=== PATIENT | male | born 1980 | race Two or more races ===

== ENCOUNTER 2023-08-12 10:59 | Inpatient (IN) | payer MEDICAID, OTHER ==
[~2023-08-12] VITALS: Ht 177.8 cm; Wt 90.7 kg
[2023-08-12] VITALS (11 sets, daily range): BP systolic 99–112; BP diastolic 60–74; PULSE 70–75; RESP 22–29; TEMP 98.2; O2SAT 92–98
[2023-08-12] MEDS ORDERED: SODIUM CHLORIDE 0.9% 1,000 ML IVB ONE (11:15)
[2023-08-12 11:38] LABS: Basophils # (auto) 0.1 10 ^3/uL (0-0.2); Basophils % (auto) 0.6 % (0.0-2.0); Eosinophils # (auto) 0.6 10 ^3/uL (0-0.8); Eosinophils % (auto) 4.2 % (0.0-7.0); Hematocrit 42.4 % (41.0-53.0); Hemoglobin 14.6 g/dL (13.5-17.5); Lymphocytes # (auto) 1.9 10 ^3/uL (0.4-5.4); Lymphocytes % (auto) 13.6 % (10.0-50.0); Mean Corpuscular Hemoglobin 28.9 pg (28.0-32.0); Mean Corpuscular Hgb Conc. 34.4 g/dL (32.0-36.0); Monocytes # (auto) 0.9 10 ^3/uL (0-1.3); Monocytes % (auto) 6.6 % (0.0-12.0); Neutrophils # (auto) 10.7 10 ^3/uL (1.6-8.6); Nucleated Red Blood Cells % 0.2 %; Red Blood Cells 5.05 10^6/uL (4.5-5.90); Red Cell Distribution Width 14.6 % (11.8-14.3); White Blood Cell 14.2 10^3/uL (4.4-10.8)
[2023-08-12 11:56] LABS: INR 1.42 (0.9-1.15); Prothrombin Time 14.6 sec (9.3-11.8)
[2023-08-12] MEDS ORDERED: ONDANSETRON HCL 4 MG/2 ML VIAL IV ONE (12:00)
[2023-08-12 12:12] LABS: COVID19 ANTIGEN SOFIA FIA NEGATIVE (NEGATIVE)
[2023-08-12 12:14] LABS: Alanine Aminotransferase 66 U/L (7-40); Albumin 4.8 g/dL (3.2-4.8); Alkaline Phosphatase 117 U/L (46-116); Anion Gap 11 (5-15); Aspartate Aminotransferase 147 U/L (13-40); BUN/Creatinine Ratio 7.2 (10.0-20.0); Blood Alcohol < 3.0 mg/dL (<10); Blood Urea Nitrogen 29 mg/dL (9-23); Carbon Dioxide 24 mmol/L (20-30); Chloride 96 mmol/L (98-107); Glucose 66 mg/dL (74-106); Potassium 5.5 mmol/L (3.5-5.1); Sodium 131 mmol/L (136-145)
[2023-08-12 12:15] LABS: Bilirubin, Total 2.5 mg/dL (0.2-1.0); Lactic Acid w/Reflex 2.5 mmol/L (0.4-2.0); Total Protein 8.6 g/dL (5.7-8.2)
[2023-08-12] MEDS ORDERED: SODIUM CHLORIDE 0.9% 1,000 ML IV ONE (12:15)
[2023-08-12] MEDS ORDERED: NOREPINEPHRINE 8 MG/250ML KIT 250 ML IV ONE (12:35)
[2023-08-12 12:43] LABS: Magnesium 1.4 mg/dL (1.6-2.6)
[2023-08-12] MEDS: NOREPINEPHRINE 8 MG/250ML KIT 250 ML IV SCH ×2 (12:44→23:44)
[2023-08-12 13:53] LABS: Rapid Influenza A Negative (Negative); Rapid Influenza B Negative (Negative)
[2023-08-12] MEDS ORDERED: SODIUM CHLORIDE 0.9% 2,750 ML IV ONE (14:00)
[2023-08-12] MEDS ORDERED: cefTRIAXone 1GM/50ML D5W 50 ML IV ONE (14:00)
[2023-08-12] MEDS ORDERED: levoFLOXacin 500MG 100 ML IV ONE (14:00)
[2023-08-12] MEDS ORDERED: NITROGLYCERIN 0.4 MG SL TAB SL PRN (15:45)
[2023-08-12] MEDS: SODIUM CHLORIDE 0.9% 1,000 ML IV SCH ×2 (15:45→23:45)
[2023-08-12] MEDS ORDERED: MORPHINE SULFATE INJ 2 MG/ml SYRG IV PRN (15:45)
[2023-08-12] MEDS ORDERED: ACETAMINOPHEN 325 MG TAB PO PRN (15:45)
[2023-08-12] MEDS ORDERED: SODIUM ZIRCONIUM CYCL 10 GM PAK PO ONE (16:30)
[2023-08-12] MEDS: PHENYLEPHRINE IV 250 ML IV SCH ×2 (17:11→23:45)
[2023-08-12] MEDS ORDERED: ASPI-628 PO (17:21)
[2023-08-12] MEDS ORDERED: LEVO200T7 PO (17:21)
[2023-08-12] MEDS ORDERED: ALLO300T2 PO (17:21)
[2023-08-12] MEDS ORDERED: SPIR25TA8 PO (17:21)
[2023-08-12] MEDS ORDERED: CARV6.2551 PO (17:21)
[2023-08-12] MEDS ORDERED: FUR20T PO (17:21)
[2023-08-12] MEDS ORDERED: HYDR-4604 PO (17:22)
[2023-08-12] MEDS: MAGNESIUM SULFATE 1GM/100ML 100 ML IV SCH ×3 (17:29→21:24)
[2023-08-12] MEDS ORDERED: VANCOMYCIN PER PHARMACY 0 MG IV SCH (17:30)
[2023-08-12] MEDS ORDERED: VANCOMYCIN 1GM/250ML 250 ML IV ONE (17:30)
[2023-08-12 18:32] LABS: Hepatitis B Surface Antigen Negative (Negative)
[2023-08-12] MEDS ORDERED: HYDROCORTISONE SOD SUCC 100 MG/2ML INJ VIAL IV ONE (18:45)
[2023-08-12 18:53] LABS: Hepatitis A Ab IgM Negative
[2023-08-12 18:54] LABS: Hepatitis B Core IgM Negative; Hepatitis C Antibody Negative (Negative)
[2023-08-12 19:13] LABS: Urine Bacteria FEW /hpf (None Seen); Urine Blood 1+ /uL (Negative); Urine Clarity HAZY (Clear); Urine Color Yellow (Yellow); Urine Hyaline Cast FEW /lpf (0 - 2); Urine Mucus FEW (None Seen); Urine Protein, UAD 2+ (Negative); Urine Specific Gravity 1.016 (1.001-1.035); Urine Urobilinogen Normal (Negative); Urine WBC <1 /hpf (0 - 3); Urine pH 5.5 (5.0-8.0)
[2023-08-12 19:18] LABS: Sodium Urine 76 mmol/L (40-220)
[2023-08-12 19:23] LABS: Protein, Urine 156.9 mg/dL (0.0-11.9)
[2023-08-12 19:25] LABS: Barbiturate Scree,Urine Neg (NEGATIVE); Benzodiazephine Screen, Urine Neg (NEGATIVE); Cocaine Screen, Urine Neg (NEGATIVE); Opiate Scree,Urine Neg (NEGATIVE); Phencyclidine Screen, Urine Neg (NEGATIVE)
[2023-08-12 19:26] LABS: Amphetamine Screen, Urine Neg (NEGATIVE); Cannabinoid Screen, Urine Neg (NEGATIVE); Creatinine, Urine 137.44 mg/dL (30.0-125.0); Urine Protein/Creatinine Ratio 1.14
[2023-08-12] MEDS: CEFEPIME 1GM/ 50ML 50 ML IV SCH (21:45)
[2023-08-12] MEDS ORDERED: DESNSL NAS (23:25)
[2023-08-12] MEDS: HYDROCORTISONE SOD SUCC 100 MG/2ML INJ VIAL IV SCH (23:45)
[2023-08-13] VITALS (104 sets, daily range): BP systolic 63–127; BP diastolic 39–83; PULSE 66–81; RESP 12–30; TEMP 97.7–98.7; O2SAT 90–98
[2023-08-13 03:29] LABS: Urine Bacteria FEW /hpf (None Seen); Urine Blood 2+ /uL (Negative); Urine Clarity Clear (Clear); Urine Color Colorless (Yellow); Urine Mucus FEW (None Seen); Urine Protein, UAD TRACE (Negative); Urine Specific Gravity 1.005 (1.001-1.035); Urine Urobilinogen Normal (Negative); Urine WBC 3 /hpf (0 - 3)
[2023-08-13 04:24] LABS: Basophils # (auto) 0 10 ^3/uL (0-0.2); Basophils % (auto) 0.2 % (0.0-2.0); Eosinophils # (auto) 0 10 ^3/uL (0-0.8); Eosinophils % (auto) 0.1 % (0.0-7.0); Hematocrit 39.2 % (41.0-53.0); Hemoglobin 13.6 g/dL (13.5-17.5); Lymphocytes # (auto) 0.7 10 ^3/uL (0.4-5.4); Lymphocytes % (auto) 5.5 % (10.0-50.0); Mean Corpuscular Hemoglobin 29.5 pg (28.0-32.0); Mean Corpuscular Hgb Conc. 34.8 g/dL (32.0-36.0); Mean Corpuscular Volume 84.8 fL (80.0-100.0); Monocytes # (auto) 0.2 10 ^3/uL (0-1.3); Monocytes % (auto) 1.6 % (0.0-12.0); Neutrophils # (auto) 12.2 10 ^3/uL (1.6-8.6); Neutrophils % (auto) 92.6 % (37.0-80.0); Red Blood Cells 4.62 10^6/uL (4.5-5.90); Red Cell Distribution Width 14.4 % (11.8-14.3); White Blood Cell 13.2 10^3/uL (4.4-10.8)
[2023-08-13 04:39] LABS: Lactic Acid w/Reflex 2.2 mmol/L (0.4-2.0)
[2023-08-13 05:08] LABS: Alanine Aminotransferase 47 U/L (7-40); Albumin 4.2 g/dL (3.2-4.8); Alkaline Phosphatase 93 U/L (46-116); Anion Gap 14 (5-15); Aspartate Aminotransferase 99 U/L (13-40); BUN/Creatinine Ratio 6.1 (10.0-20.0); Blood Urea Nitrogen 20 mg/dL (9-23); Calcium 8.9 mg/dL (8.5-10.1); Carbon Dioxide 19 mmol/L (20-30); Chloride 101 mmol/L (98-107); Glucose 163 mg/dL (74-106); Potassium 3.8 mmol/L (3.5-5.1); Sodium 134 mmol/L (136-145)
[2023-08-13 05:09] LABS: Bilirubin, Total 2.5 mg/dL (0.2-1.0)
[2023-08-13] MEDS: NOREPINEPHRINE 8 MG/250ML KIT 250 ML IV SCH ×2 (06:35→17:51)
[2023-08-13] MEDS: HYDROCORTISONE SOD SUCC 100 MG/2ML INJ VIAL IV SCH ×3 (06:36→22:09)
[2023-08-13] MEDS: LEVOTHYROXINE SODIUM 100 MCG TAB PO SCH (06:37)
[2023-08-13] MEDS ORDERED: ONDANSETRON HCL 4 MG/2 ML VIAL IV PRN (08:00)
[2023-08-13] MEDS: PHENYLEPHRINE IV 250 ML IV SCH ×2 (09:10→17:30)
[2023-08-13] MEDS: ASPirin-EC 81 mg tab PO SCH (10:14)
[2023-08-13] MEDS: SODIUM CHLORIDE 0.9% 1,000 ML IV SCH (10:14)
[2023-08-13] MEDS: ALLOPURINOL 300 MG TAB PO SCH (10:18)
[2023-08-13] MEDS ORDERED: VANCOMYCIN 1GM/250ML 250 ML IV ONE (11:30)
[2023-08-13 14:17] LABS: Lactic Acid w/Reflex 3.2 mmol/L (0.4-2.0)
[2023-08-13] MEDS: MAGNESIUM SULFATE 1GM/100ML 100 ML IV SCH ×2 (14:18→16:25)
[2023-08-13 14:43] LABS: Creatinine, Urine 29.45 mg/dL (30.0-125.0)
[2023-08-13] MEDS: SODIUM BICARBONATE 50ML VIAL 75 ML in SOD CHL 0.45% 1,000 ML IV SCH (14:51)
[2023-08-13] MEDS: CEFEPIME 1GM/ 50ML 50 ML IV SCH (17:49)
[2023-08-13 20:06] LABS: Lactic Acid w/Reflex 2.7 mmol/L (0.4-2.0)
[2023-08-13] MEDS ORDERED: DESMOPRESSIN ACET 0.01% 5ML NASAL SPRY SCH (22:00)
[2023-08-14] VITALS (106 sets, daily range): BP systolic 82–207; BP diastolic 53–145; PULSE 70–98; RESP 13–25; TEMP 98.2–98.5; O2SAT 86–99
[2023-08-14] MEDS: SODIUM BICARBONATE 50ML VIAL 75 ML in SOD CHL 0.45% 1,000 ML IV SCH ×4 (00:27→19:39)
[2023-08-14 01:12] LABS: Lactic Acid w/Reflex 2.1 mmol/L (0.4-2.0)
[2023-08-14] MEDS: PHENYLEPHRINE IV 250 ML IV SCH ×3 (01:50→17:51)
[2023-08-14 04:18] LABS: Lactic Acid w/Reflex 2.7 mmol/L (0.4-2.0)
[2023-08-14 04:21] LABS: Alanine Aminotransferase 32 U/L (7-40); Albumin 4.1 g/dL (3.2-4.8); Alkaline Phosphatase 75 U/L (46-116); Anion Gap 9 (5-15); Aspartate Aminotransferase 50 U/L (13-40); Blood Urea Nitrogen 15 mg/dL (9-23); Carbon Dioxide 23 mmol/L (20-30); Chloride 106 mmol/L (98-107); Glucose 131 mg/dL (74-106); Potassium 4.1 mmol/L (3.5-5.1); Sodium 138 mmol/L (136-145)
[2023-08-14 04:22] LABS: Basophils # (auto) 0 10 ^3/uL (0-0.2); Bilirubin, Total 1.4 mg/dL (0.2-1.0); Eosinophils # (auto) 0 10 ^3/uL (0-0.8); Hematocrit 35.7 % (41.0-53.0); Hemoglobin 12.4 g/dL (13.5-17.5); Lymphocytes # (auto) 0.8 10 ^3/uL (0.4-5.4); Mean Corpuscular Hemoglobin 28.9 pg (28.0-32.0); Mean Corpuscular Hgb Conc. 34.7 g/dL (32.0-36.0); Mean Corpuscular Volume 83.3 fL (80.0-100.0); Monocytes # (auto) 0.5 10 ^3/uL (0-1.3); Monocytes % (auto) 3.2 % (0.0-12.0); Neutrophils # (auto) 13.9 10 ^3/uL (1.6-8.6); Neutrophils % (auto) 91.8 % (37.0-80.0); Nucleated Red Blood Cells % 0.1 %; Red Blood Cells 4.28 10^6/uL (4.5-5.90); Red Cell Distribution Width 14.8 % (11.8-14.3); Total Protein 7.6 g/dL (5.7-8.2); White Blood Cell 15.2 10^3/uL (4.4-10.8)
[2023-08-14] MEDS: HYDROCORTISONE SOD SUCC 100 MG/2ML INJ VIAL IV SCH ×2 (06:10→14:03)
[2023-08-14] MEDS: LEVOTHYROXINE SODIUM 100 MCG TAB PO SCH (07:26)
[2023-08-14] MEDS: CEFEPIME 1GM/ 50ML 50 ML IV SCH ×2 (09:58→21:31)
[2023-08-14] MEDS: ASPirin-EC 81 mg tab PO SCH (09:58)
[2023-08-14] MEDS: ALLOPURINOL 300 MG TAB PO SCH (09:58)
[2023-08-14] MEDS ORDERED: VANCOMYCIN 1GM/250ML 250 ML IV ONE (11:00)
[2023-08-14 12:30] LABS: Lactic Acid w/Reflex 2.1 mmol/L (0.4-2.0)
[2023-08-14] MEDS: NOREPINEPHRINE 8 MG/250ML KIT 250 ML IV SCH (18:04)
[2023-08-14] MEDS ORDERED: HYDROCORTISONE SOD SUCC 100 MG/2ML INJ VIAL IV SCH (22:00)
[2023-08-15] VITALS (52 sets, daily range): BP systolic 76–132; BP diastolic 49–89; PULSE 70–75; RESP 15–24; TEMP 98.4–98.5; O2SAT 88–95
[2023-08-15] MEDS: LEVOTHYROXINE SODIUM 100 MCG TAB PO SCH (07:00)
[2023-08-15] MEDS: ALLOPURINOL 300 MG TAB PO SCH (10:00)
[2023-08-15] MEDS: CEFEPIME 1GM/ 50ML 50 ML IV SCH (10:00)
[2023-08-15] MEDS: ASPirin-EC 81 mg tab PO SCH (10:00)
[2023-08-15 12:42] LABS: Anion Gap 10 (5-15); BUN/Creatinine Ratio 12.9 (10.0-20.0); Blood Urea Nitrogen 17 mg/dL (9-23); Calcium 8.3 mg/dL (8.7-10.4); Carbon Dioxide 25 mmol/L (20-30); Chloride 101 mmol/L (98-107); Glucose 114 mg/dL (74-106); Potassium 3.4 mmol/L (3.5-5.1); Sodium 136 mmol/L (136-145)
[2023-08-15] MEDS ORDERED: SPIRONOLACTONE 25 MG TAB PO ONE (15:00)
[2023-08-15] MEDS ORDERED: FUROSEMIDE 20 MG TAB PO ONE (15:00)
[2023-08-15] MEDS ORDERED: VANCOMYCIN 1GM/250ML 250 ML IV ONE (15:00)
[2023-08-15] MEDS ORDERED: POTASSIUM CHL 20 Meq TABLET PO ONE (15:00)
[2023-08-15 16:53] LABS: Basophils # (auto) 0 10 ^3/uL (0-0.2); Basophils % (auto) 0.1 % (0.0-2.0); Eosinophils # (auto) 0 10 ^3/uL (0-0.8); Hematocrit 32.8 % (41.0-53.0); Hemoglobin 11.3 g/dL (13.5-17.5); Lymphocytes # (auto) 1.1 10 ^3/uL (0.4-5.4); Lymphocytes % (auto) 9.8 % (10.0-50.0); Mean Corpuscular Hgb Conc. 34.4 g/dL (32.0-36.0); Mean Corpuscular Volume 84.5 fL (80.0-100.0); Monocytes # (auto) 0.4 10 ^3/uL (0-1.3); Monocytes % (auto) 3.9 % (0.0-12.0); Neutrophils # (auto) 9.4 10 ^3/uL (1.6-8.6); Neutrophils % (auto) 86.2 % (37.0-80.0); Red Blood Cells 3.88 10^6/uL (4.5-5.90); Red Cell Distribution Width 14.6 % (11.8-14.3); White Blood Cell 10.9 10^3/uL (4.4-10.8)
[2023-08-15] MEDS ORDERED: CEFEPIME 2GM/50ML NS 50 ML IV SCH (17:00)
[2023-08-15] MEDS: NOREPINEPHRINE 8 MG/250ML KIT 250 ML IV SCH (17:45)
[2023-08-15] MEDS: CEFEPIME 2GM/50ML NS 50 ML IV SCH ×2 (18:37→21:48)
[2023-08-15] MEDS: HYDROCORTISONE 10 MG TAB PO SCH (21:46)
[2023-08-15] MEDS: DESMOPRESSIN ACET 0.01% 5ML NASAL SPRY SCH (21:53)
[2023-08-15] MEDS ORDERED: CEFEPIME 1GM/ 50ML 50 ML IV SCH (22:00)
[2023-08-16] VITALS (104 sets, daily range): BP systolic 65–146; BP diastolic 44–103; PULSE 68–107; RESP 0–23; TEMP 97.8–98.6; O2SAT 91–97
[2023-08-16] MEDS: NOREPINEPHRINE 8 MG/250ML KIT 250 ML IV SCH (01:31)
[2023-08-16 05:29] LABS: Basophils # (auto) 0.1 10 ^3/uL (0-0.2); Basophils % (auto) 0.7 % (0.0-2.0); Eosinophils # (auto) 0 10 ^3/uL (0-0.8); Eosinophils % (auto) 0.2 % (0.0-7.0); Hemoglobin 11.6 g/dL (13.5-17.5); Lymphocytes # (auto) 1.5 10 ^3/uL (0.4-5.4); Lymphocytes % (auto) 16.7 % (10.0-50.0); Mean Corpuscular Hemoglobin 29.4 pg (28.0-32.0); Mean Corpuscular Hgb Conc. 35.2 g/dL (32.0-36.0); Mean Corpuscular Volume 83.5 fL (80.0-100.0); Monocytes # (auto) 0.6 10 ^3/uL (0-1.3); Monocytes % (auto) 6.7 % (0.0-12.0); Neutrophils # (auto) 6.9 10 ^3/uL (1.6-8.6); Neutrophils % (auto) 75.7 % (37.0-80.0); Red Blood Cells 3.95 10^6/uL (4.5-5.90); Red Cell Distribution Width 14.3 % (11.8-14.3); White Blood Cell 9.1 10^3/uL (4.4-10.8)
[2023-08-16 05:49] LABS: Alanine Aminotransferase 18 U/L (7-40); Albumin 3.7 g/dL (3.2-4.8); Alkaline Phosphatase 59 U/L (46-116); Anion Gap 6 (5-15); Aspartate Aminotransferase 27 U/L (13-40); BUN/Creatinine Ratio 18.3 (10.0-20.0); Blood Urea Nitrogen 22 mg/dL (9-23); Calcium 8.3 mg/dL (8.5-10.1); Carbon Dioxide 27 mmol/L (20-30); Chloride 100 mmol/L (98-107); Glucose 85 mg/dL (74-106); Potassium 3.7 mmol/L (3.5-5.1); Sodium 133 mmol/L (136-145)
[2023-08-16 05:50] LABS: Bilirubin, Total 0.9 mg/dL (0.2-1.0); Total Protein 6.6 g/dL (5.7-8.2)
[2023-08-16] MEDS: HYDROCORTISONE 10 MG TAB PO SCH ×3 (06:23→21:46)
[2023-08-16] MEDS: CEFEPIME 2GM/50ML NS 50 ML IV SCH (06:23)
[2023-08-16] MEDS: LEVOTHYROXINE SODIUM 100 MCG TAB PO SCH (06:23)
[2023-08-16] MEDS ORDERED: COLCPOW2 PO (09:59)
[2023-08-16] MEDS ORDERED: COLCHICINE 0.6 MG CAP PO SCH (10:00)
[2023-08-16] MEDS ORDERED: FUROSEMIDE 20 MG TAB PO SCH (10:00)
[2023-08-16] MEDS: DESMOPRESSIN ACET 0.01% 5ML NASAL SPRY SCH ×2 (10:14→21:47)
[2023-08-16] MEDS: ASPirin-EC 81 mg tab PO SCH (10:14)
[2023-08-16] MEDS: ALLOPURINOL 300 MG TAB PO SCH (10:15)
[2023-08-16] MEDS: SPIRONOLACTONE 25 MG TAB PO SCH (10:15)
[2023-08-16] MEDS ORDERED: cefTRIAXone 1GM/50ML D5W 0 ML IV ONE (11:15)
[2023-08-16] MEDS: CEFTRIAXONE SODIUM 2 GM in D5W 5% 100 ML IV SCH (11:21)
[2023-08-17] VITALS (104 sets, daily range): BP systolic 77–140; BP diastolic 22–99; PULSE 70–117; RESP 10–26; TEMP 96.9–98.4; O2SAT 89–97
[2023-08-17 00:44] LABS: Urine Bacteria NONE SEEN /hpf (None Seen); Urine Blood Negative /uL (Negative); Urine Clarity Clear (Clear); Urine Color Yellow (Yellow); Urine Protein, UAD TRACE (Negative); Urine Specific Gravity 1.021 (1.001-1.035); Urine WBC 1 /hpf (0 - 3)
[2023-08-17 04:12] LABS: Anion Gap 6 (5-15); Basophils # (auto) 0.1 10 ^3/uL (0-0.2); Basophils % (auto) 0.7 % (0.0-2.0); Carbon Dioxide 27 mmol/L (20-30); Chloride 97 mmol/L (98-107); Eosinophils # (auto) 0.1 10 ^3/uL (0-0.8); Eosinophils % (auto) 1.2 % (0.0-7.0); Hematocrit 34.3 % (41.0-53.0); Hemoglobin 12.1 g/dL (13.5-17.5); Lymphocytes # (auto) 1.6 10 ^3/uL (0.4-5.4); Lymphocytes % (auto) 20.2 % (10.0-50.0); Mean Corpuscular Hemoglobin 29.4 pg (28.0-32.0); Mean Corpuscular Hgb Conc. 35.3 g/dL (32.0-36.0); Mean Corpuscular Volume 83.4 fL (80.0-100.0); Monocytes # (auto) 0.8 10 ^3/uL (0-1.3); Monocytes % (auto) 9.9 % (0.0-12.0); Neutrophils # (auto) 5.4 10 ^3/uL (1.6-8.6); Nucleated Red Blood Cells % 0.2 %; Potassium 3.6 mmol/L (3.5-5.1); Red Blood Cells 4.11 10^6/uL (4.5-5.90); Red Cell Distribution Width 13.9 % (11.8-14.3); Sodium 130 mmol/L (136-145); White Blood Cell 7.9 10^3/uL (4.4-10.8)
[2023-08-17 04:14] LABS: Calcium 8.5 mg/dL (8.7-10.4)
[2023-08-17 04:18] LABS: BUN/Creatinine Ratio 19.1 (10.0-20.0); Blood Urea Nitrogen 18 mg/dL (9-23); Glucose 85 mg/dL (74-106)
[2023-08-17] MEDS: HYDROCORTISONE 10 MG TAB PO SCH ×3 (06:19→22:12)
[2023-08-17] MEDS: LEVOTHYROXINE SODIUM 100 MCG TAB PO SCH (06:20)
[2023-08-17] MEDS: DESMOPRESSIN ACET 0.01% 5ML NASAL SPRY SCH ×2 (09:57→22:12)
[2023-08-17] MEDS: ASPirin-EC 81 mg tab PO SCH (09:58)
[2023-08-17] MEDS: ALLOPURINOL 300 MG TAB PO SCH (09:58)
[2023-08-17] MEDS: SPIRONOLACTONE 25 MG TAB PO SCH (09:58)
[2023-08-17] MEDS: CEFTRIAXONE SODIUM 2 GM in D5W 5% 100 ML IV SCH (09:58)
[2023-08-17] MEDS: FUROSEMIDE 40 MG TAB PO SCH (09:59)
[2023-08-17] MEDS: NOREPINEPHRINE 8 MG/250ML KIT 250 ML IV SCH (14:44)
[2023-08-18] VITALS (104 sets, daily range): BP systolic 66–122; BP diastolic 44–82; PULSE 70–86; RESP 6–21; TEMP 97.1–98.2; O2SAT 88–100
[2023-08-18 00:50] LABS: Basophils # (auto) 0.1 10 ^3/uL (0-0.2); Basophils % (auto) 0.7 % (0.0-2.0); Eosinophils # (auto) 0.2 10 ^3/uL (0-0.8); Eosinophils % (auto) 1.7 % (0.0-7.0); Hematocrit 37.2 % (41.0-53.0); Lymphocytes # (auto) 2.4 10 ^3/uL (0.4-5.4); Lymphocytes % (auto) 21.5 % (10.0-50.0); Mean Corpuscular Hgb Conc. 34.9 g/dL (32.0-36.0); Mean Corpuscular Volume 83.2 fL (80.0-100.0); Monocytes # (auto) 1.2 10 ^3/uL (0-1.3); Monocytes % (auto) 10.5 % (0.0-12.0); Neutrophils # (auto) 7.4 10 ^3/uL (1.6-8.6); Neutrophils % (auto) 65.6 % (37.0-80.0); Nucleated Red Blood Cells % 0.1 %; Red Blood Cells 4.47 10^6/uL (4.5-5.90); White Blood Cell 11.3 10^3/uL (4.4-10.8)
[2023-08-18 00:58] LABS: Anion Gap 6 (5-15); Carbon Dioxide 27 mmol/L (20-30); Chloride 96 mmol/L (98-107); Potassium 3.6 mmol/L (3.5-5.1); Sodium 129 mmol/L (136-145)
[2023-08-18 00:59] LABS: Calcium 8.6 mg/dL (8.7-10.4)
[2023-08-18 01:04] LABS: BUN/Creatinine Ratio 16.7 (10.0-20.0); Blood Urea Nitrogen 16 mg/dL (9-23); Glucose 97 mg/dL (74-106)
[2023-08-18] MEDS: HYDROCORTISONE 10 MG TAB PO SCH ×3 (06:25→21:44)
[2023-08-18] MEDS: LEVOTHYROXINE SODIUM 100 MCG TAB PO SCH (06:25)
[2023-08-18] MEDS: CEFTRIAXONE SODIUM 2 GM in D5W 5% 100 ML IV SCH (08:44)
[2023-08-18] MEDS: FUROSEMIDE 40 MG TAB PO SCH (08:45)
[2023-08-18] MEDS: ASPirin-EC 81 mg tab PO SCH (08:45)
[2023-08-18] MEDS: ALLOPURINOL 300 MG TAB PO SCH (08:45)
[2023-08-18] MEDS: SPIRONOLACTONE 25 MG TAB PO SCH (08:45)
[2023-08-18] MEDS: DESMOPRESSIN ACET 0.01% 5ML NASAL SPRY SCH ×2 (08:46→21:44)
[2023-08-18] MEDS: NOREPINEPHRINE 8 MG/250ML KIT 250 ML IV SCH (12:05)
[2023-08-18] MEDS: ALBUTEROL SULF 2.5 MG/0.5ML(0.5%) NEB SOLN NEB SCH ×2 (13:38→19:24)
[2023-08-18] MEDS: IPRATROPIUM BROM 0.5 MG/2.5ML INH SOL NEB SCH ×2 (13:38→19:24)
[2023-08-19] VITALS (107 sets, daily range): BP systolic 64–113; BP diastolic 35–80; PULSE 70–96; RESP 9–20; TEMP 97.2–99.2; O2SAT 88–100
[2023-08-19 04:35] LABS: Basophils # (auto) 0.4 10 ^3/uL (0-0.2); Basophils % (auto) 2.7 % (0.0-2.0); Eosinophils # (auto) 0.3 10 ^3/uL (0-0.8); Eosinophils % (auto) 1.9 % (0.0-7.0); Hematocrit 37.2 % (41.0-53.0); Hemoglobin 13.1 g/dL (13.5-17.5); Lymphocytes # (auto) 1.9 10 ^3/uL (0.4-5.4); Lymphocytes % (auto) 13.3 % (10.0-50.0); Mean Corpuscular Hemoglobin 29.2 pg (28.0-32.0); Mean Corpuscular Hgb Conc. 35.3 g/dL (32.0-36.0); Mean Corpuscular Volume 82.7 fL (80.0-100.0); Monocytes # (auto) 1.1 10 ^3/uL (0-1.3); Monocytes % (auto) 8.1 % (0.0-12.0); Neutrophils # (auto) 10.4 10 ^3/uL (1.6-8.6); Nucleated Red Blood Cells % 0.3 %; Red Blood Cells 4.49 10^6/uL (4.5-5.90); Red Cell Distribution Width 14.3 % (11.8-14.3)
[2023-08-19 04:47] LABS: Chloride 97 mmol/L (98-107); Potassium 3.7 mmol/L (3.5-5.1); Sodium 130 mmol/L (136-145)
[2023-08-19 04:48] LABS: Anion Gap 6 (5-15); Calcium 8.8 mg/dL (8.5-10.1); Carbon Dioxide 27 mmol/L (20-30)
[2023-08-19 04:53] LABS: BUN/Creatinine Ratio 17.2 (10.0-20.0); Blood Urea Nitrogen 16 mg/dL (9-23); Glucose 101 mg/dL (74-106)
[2023-08-19] MEDS: HYDROCORTISONE 10 MG TAB PO SCH ×2 (06:29→18:29)
[2023-08-19] MEDS: LEVOTHYROXINE SODIUM 100 MCG TAB PO SCH (06:30)
[2023-08-19] MEDS: IPRATROPIUM BROM 0.5 MG/2.5ML INH SOL NEB SCH ×3 (07:46→18:28)
[2023-08-19] MEDS: ALBUTEROL SULF 2.5 MG/0.5ML(0.5%) NEB SOLN NEB SCH ×3 (07:46→18:28)
[2023-08-19] MEDS: CEFTRIAXONE SODIUM 2 GM in D5W 5% 100 ML IV SCH (10:04)
[2023-08-19] MEDS: SPIRONOLACTONE 25 MG TAB PO SCH (10:05)
[2023-08-19] MEDS: DESMOPRESSIN ACET 0.01% 5ML NASAL SPRY SCH ×2 (10:05→21:48)
[2023-08-19] MEDS: ALLOPURINOL 300 MG TAB PO SCH (10:06)
[2023-08-19] MEDS: FUROSEMIDE 40 MG TAB PO SCH (10:06)
[2023-08-19] MEDS: ASPirin-EC 81 mg tab PO SCH (10:06)
[2023-08-19] MEDS ORDERED: LORazepam 2MG/ML-1ML VIAL IV PRN (15:45)
[2023-08-19] MEDS: NOREPINEPHRINE 8 MG/250ML KIT 250 ML IV SCH (16:00)
[2023-08-20] VITALS (103 sets, daily range): BP systolic 73–116; BP diastolic 41–88; PULSE 17–107; RESP 11–25; TEMP 97.7–99; O2SAT 90–100
[2023-08-20] MEDS: NOREPINEPHRINE 8 MG/250ML KIT 250 ML IV SCH (03:24)
[2023-08-20 04:44] LABS: Basophils # (auto) 0.1 10 ^3/uL (0-0.2); Basophils % (auto) 0.6 % (0.0-2.0); Eosinophils # (auto) 0.1 10 ^3/uL (0-0.8); Eosinophils % (auto) 1.2 % (0.0-7.0); Hematocrit 37.8 % (41.0-53.0); Hemoglobin 13.3 g/dL (13.5-17.5); Lymphocytes # (auto) 2.4 10 ^3/uL (0.4-5.4); Lymphocytes % (auto) 20.3 % (10.0-50.0); Mean Corpuscular Hemoglobin 29.5 pg (28.0-32.0); Mean Corpuscular Hgb Conc. 35.2 g/dL (32.0-36.0); Mean Corpuscular Volume 83.8 fL (80.0-100.0); Monocytes % (auto) 8.7 % (0.0-12.0); Neutrophils # (auto) 8.3 10 ^3/uL (1.6-8.6); Neutrophils % (auto) 69.2 % (37.0-80.0); Red Blood Cells 4.51 10^6/uL (4.5-5.90); Red Cell Distribution Width 14.1 % (11.8-14.3); White Blood Cell 11.9 10^3/uL (4.4-10.8)
[2023-08-20 05:07] LABS: Alanine Aminotransferase 28 U/L (7-40); Albumin 4.7 g/dL (3.2-4.8); Alkaline Phosphatase 93 U/L (46-116); Anion Gap 8 (5-15); Aspartate Aminotransferase 29 U/L (13-40); Blood Urea Nitrogen 14 mg/dL (9-23); Calcium 9.3 mg/dL (8.7-10.4); Carbon Dioxide 26 mmol/L (20-30); Chloride 95 mmol/L (98-107); Glucose 98 mg/dL (74-106); Potassium 4.1 mmol/L (3.5-5.1); Sodium 129 mmol/L (136-145)
[2023-08-20 05:08] LABS: Bilirubin, Total 0.7 mg/dL (0.2-1.0); Total Protein 8.2 g/dL (5.7-8.2)
[2023-08-20] MEDS: IPRATROPIUM BROM 0.5 MG/2.5ML INH SOL NEB SCH ×3 (05:57→18:13)
[2023-08-20] MEDS: ALBUTEROL SULF 2.5 MG/0.5ML(0.5%) NEB SOLN NEB SCH ×3 (05:57→18:13)
[2023-08-20] MEDS: LEVOTHYROXINE SODIUM 100 MCG TAB PO SCH (06:30)
[2023-08-20] MEDS: HYDROCORTISONE 10 MG TAB PO SCH ×2 (06:31→18:00)
[2023-08-20] MEDS ORDERED: FUROSEMIDE 20 MG TAB PO SCH (10:00)
[2023-08-20] MEDS: DESMOPRESSIN ACET 0.01% 5ML NASAL SPRY SCH ×2 (10:18→21:48)
[2023-08-20] MEDS: SPIRONOLACTONE 25 MG TAB PO SCH (10:18)
[2023-08-20] MEDS: ASPirin-EC 81 mg tab PO SCH (10:18)
[2023-08-20] MEDS: ALLOPURINOL 300 MG TAB PO SCH (10:19)
[2023-08-20] MEDS: FUROSEMIDE 20 MG TAB PO SCH (18:00)
[2023-08-21] VITALS (40 sets, daily range): BP systolic 70–118; BP diastolic 40–79; PULSE 70–71; RESP 5–23; TEMP 98–98.7; O2SAT 93–100
[2023-08-21 05:01] LABS: Basophils # (auto) 0 10 ^3/uL (0-0.2); Basophils % (auto) 0.4 % (0.0-2.0); Eosinophils # (auto) 0 10 ^3/uL (0-0.8); Eosinophils % (auto) 0.5 % (0.0-7.0); Hematocrit 34.8 % (41.0-53.0); Hemoglobin 12.4 g/dL (13.5-17.5); Lymphocytes # (auto) 1.9 10 ^3/uL (0.4-5.4); Lymphocytes % (auto) 24.3 % (10.0-50.0); Mean Corpuscular Hemoglobin 29.9 pg (28.0-32.0); Mean Corpuscular Hgb Conc. 35.6 g/dL (32.0-36.0); Mean Corpuscular Volume 83.9 fL (80.0-100.0); Monocytes # (auto) 0.6 10 ^3/uL (0-1.3); Monocytes % (auto) 7.9 % (0.0-12.0); Neutrophils # (auto) 5.3 10 ^3/uL (1.6-8.6); Neutrophils % (auto) 66.9 % (37.0-80.0); Nucleated Red Blood Cells % 0.1 %; Red Blood Cells 4.15 10^6/uL (4.5-5.90); Red Cell Distribution Width 14.1 % (11.8-14.3); White Blood Cell 7.9 10^3/uL (4.4-10.8)
[2023-08-21 05:09] LABS: Chloride 94 mmol/L (98-107); Potassium 4.3 mmol/L (3.5-5.1); Sodium 129 mmol/L (136-145)
[2023-08-21 05:10] LABS: Calcium 9.3 mg/dL (8.5-10.1)
[2023-08-21 05:15] LABS: Blood Urea Nitrogen 17 mg/dL (9-23); Glucose 90 mg/dL (74-106)
[2023-08-21 05:27] LABS: Anion Gap 9 (5-15); Carbon Dioxide 26 mmol/L (20-30)
[2023-08-21] MEDS: ALBUTEROL SULF 2.5 MG/0.5ML(0.5%) NEB SOLN NEB SCH ×2 (06:19→11:36)
[2023-08-21] MEDS: IPRATROPIUM BROM 0.5 MG/2.5ML INH SOL NEB SCH ×2 (06:19→11:36)
[2023-08-21] MEDS: FUROSEMIDE 20 MG TAB PO SCH (06:25)
[2023-08-21] MEDS: HYDROCORTISONE 10 MG TAB PO SCH (06:42)
[2023-08-21] MEDS: LEVOTHYROXINE SODIUM 100 MCG TAB PO SCH (06:42)
[2023-08-21] MEDS: SPIRONOLACTONE 25 MG TAB PO SCH (10:44)
[2023-08-21] MEDS: ALLOPURINOL 300 MG TAB PO SCH (10:44)
[2023-08-21] MEDS: ASPirin-EC 81 mg tab PO SCH (10:44)
[2023-08-21] MEDS ORDERED: DESM1SPR (11:36)
== END 2023-08-21 14:27 | disposition home or self-care (01) | DRG 720 ==
LOC: EDBD 10:59 → ER 10:59 → TELE 15:44 → ICU WEST 21:55
PROVIDERS: ADMIT Nurse Practitioner Family; ATTEND Internal Medicine
DX: A41.9 Sepsis, unspecified organism (principal); N17.0 Acute kidney failure with tubular necrosis; R65.21 Severe sepsis with septic shock; G92.8 Other toxic encephalopathy; I50.43 Acute on chronic combined systolic (congestive) and diastolic (congestive) heart failure; N18.4 Chronic kidney disease, stage 4 (severe); Z20.822 Contact with and (suspected) exposure to COVID-19; E87.20 Acidosis, unspecified; E27.1 Primary adrenocortical insufficiency; E11.22 Type 2 diabetes mellitus with diabetic chronic kidney disease; E83.42 Hypomagnesemia; E87.1 Hypo-osmolality and hyponatremia; E86.0 Dehydration; E87.5 Hyperkalemia; E03.9 Hypothyroidism, unspecified; E87.8 Other disorders of electrolyte and fluid balance, not elsewhere classified; M10.9 Gout, unspecified; N30.90 Cystitis, unspecified without hematuria; E23.0 Hypopituitarism; Z95.0 Presence of cardiac pacemaker
CPT/HCPCS: 36415; 70450; 71045; 74176; 76705; 76775; 80048; 80053; 80074; 80202; 80307; 80320; 81001; 82306; 82533; 82565; 82570; 83605; 83690; 83735; 83880; 83930; 83935; 83970; 84100; 84156; 84300; 84443; 84484; 85025; 85610; 85730; 87040; 87081; 87086; 87426; 87804; 93005; 93306; 94640; 95819; 96361; 96365; 96366; 96367; 96375; 97110; 97116; 97163; 97530; 99291; G0378; J0692; J0696; J1956; J2405; J7060

== ENCOUNTER 2024-06-22 14:02 | Inpatient (IN) | payer MEDICAID ==
[~2024-06-22] VITALS: Ht 177.8 cm; Wt 93.5 kg
[~2024-06-22 14:02] MED LIST: ALLO300T2 PO; ASPI-628 PO; CARV6.2551 PO; COLCPOW2 PO; DAPA1TAB4 PO; DESNSL NAS; FURO1TAB31 PO; FURO20TA4 PO; HYDR-4604 PO; LEVO200T7 PO; METO25TA93 PO; SPIR25TA8 PO; [UNRECOGNIZED DRUG - CODE]; [UNRECOGNIZED DRUG - CODE] EACHNOSTRI
[2024-06-22 16:06] LABS: Basophils # (auto) 0.1 10 ^3/uL (0-0.2); Basophils % (auto) 0.7 % (0.0-2.0); Eosinophils # (auto) 0.2 10 ^3/uL (0-0.8); Hematocrit 47.2 % (41.0-53.0); Hemoglobin 16.5 g/dL (13.5-17.5); Lymphocytes # (auto) 3.7 10 ^3/uL (0.4-5.4); Lymphocytes % (auto) 31.5 % (10.0-50.0); Mean Corpuscular Hemoglobin 30.9 pg (28.0-32.0); Mean Corpuscular Volume 88.2 fL (80.0-100.0); Monocytes # (auto) 1.1 10 ^3/uL (0-1.3); Monocytes % (auto) 9.3 % (0.0-12.0); Neutrophils # (auto) 6.6 10 ^3/uL (1.6-8.6); Neutrophils % (auto) 56.5 % (37.0-80.0); Nucleated Red Blood Cells % 0.2 %; Platelet Count (auto) 270 10^3/uL (140-450); Red Blood Cells 5.35 10^6/uL (4.5-5.90); Red Cell Distribution Width 15.5 % (11.8-14.3); White Blood Cell 11.7 10^3/uL (4.4-10.8)
[2024-06-22 16:26] LABS: Alanine Aminotransferase 124 U/L (7-40); Alkaline Phosphatase 179 U/L (46-116); Calcium 11.1 mg/dL (8.7-10.4); Carbon Dioxide 23 mmol/L (20-30); Chloride 99 mmol/L (98-107); Glucose 108 mg/dL (74-106)
[2024-06-22 16:27] LABS: Albumin 5.2 g/dL (3.2-4.8); Anion Gap 8 (5-15); Aspartate Aminotransferase 105 U/L (13-40); BUN/Creatinine Ratio 8.3 (10.0-20.0); Bilirubin, Total 1.8 mg/dL (0.2-1.0); Blood Urea Nitrogen 13 mg/dL (9-23); Potassium 3.6 mmol/L (3.5-5.1); Sodium 130 mmol/L (136-145); Total Protein 9.5 g/dL (5.7-8.2)
[2024-06-22 19:25] LABS: Urine Bacteria FEW /hpf (None Seen); Urine Blood Negative /uL (Negative); Urine Clarity Turbid (Clear); Urine Color Dark-Yellow (Yellow); Urine Hyaline Cast MANY /lpf (0 - 2); Urine Mucus FEW (None Seen); Urine Protein, UAD 1+ (Negative); Urine Urobilinogen 2 mg/dL (Negative); Urine WBC 5 /hpf (0 - 3)
[2024-06-22] MEDS ORDERED: NITROGLYCERIN 0.4 MG SL TAB SL PRN (19:30)
[2024-06-22] MEDS ORDERED: DOCUSATE SOD 100 MG CAP PO PRN (19:30)
[2024-06-22] MEDS ORDERED: MORPHINE SULFATE INJ 2 MG/ml SYRG IV PRN (19:30)
[2024-06-22] MEDS ORDERED: ONDANSETRON HCL 4 MG/2 ML VIAL IV PRN (19:30)
[2024-06-22] MEDS: SODIUM CHLORIDE 0.9% 1,000 ML IV ONE (20:01)
[2024-06-22] MEDS: ONDANSETRON HCL 4 MG/2 ML VIAL IV ONE (20:01)
[2024-06-22] MEDS: KETOROLAC TROMETH 30 MG/ML 1ML VIAL IV ONE (20:02)
[2024-06-22] MEDS: metroNIDAZOLE 500 MG TAB PO ONE (20:09)
[2024-06-22] MEDS: DICYCLOMINE HCL 10 MG CAP PO SCH (20:09)
[2024-06-22] MEDS: PANTOPRAZOLE 40 MG/10 ML VIAL INJ IV ONE (20:10)
[2024-06-22] MEDS: SODIUM CHLORIDE 0.9% 1,000 ML IV SCH (20:10)
[2024-06-22] MEDS: DICYCLOMINE HCL (10MG/ML) 2 ML AMPULE IM ONE (20:11)
[2024-06-22] MEDS: CARVEDILOL 3.125 MG TAB PO SCH (22:00)
[2024-06-22 22:54] LABS: COVID19 ANTIGEN SOFIA FIA NEGATIVE (NEGATIVE)
[2024-06-22 23:40] VITALS: BP 93/60; PULSE 96; RESP 18; TEMP 97.5; O2SAT 99
[2024-06-22] MEDS: metroNIDAZOLE 500 MG TAB PO SCH (23:43)
[2024-06-23] VITALS (8 sets, daily range): BP systolic 94–112; BP diastolic 50–84; PULSE 86–104; RESP 14–20; TEMP 97.5–98.1; O2SAT 96–100
[2024-06-23] MEDS ORDERED: ACETAMINOPHEN 325 MG TAB PO PRN (03:15)
[2024-06-23] MEDS: LEVOTHYROXINE SODIUM 100 MCG TAB PO SCH (05:45)
[2024-06-23 06:45] LABS: Basophils # (auto) 0.1 10 ^3/uL (0-0.2); Basophils % (auto) 0.6 % (0.0-2.0); Eosinophils # (auto) 0.2 10 ^3/uL (0-0.8); Eosinophils % (auto) 2.2 % (0.0-7.0); Hematocrit 41.8 % (41.0-53.0); Hemoglobin 14.6 g/dL (13.5-17.5); Lymphocytes # (auto) 2.7 10 ^3/uL (0.4-5.4); Lymphocytes % (auto) 28.6 % (10.0-50.0); Mean Corpuscular Hemoglobin 30.7 pg (28.0-32.0); Mean Corpuscular Volume 87.5 fL (80.0-100.0); Monocytes # (auto) 0.9 10 ^3/uL (0-1.3); Monocytes % (auto) 10.1 % (0.0-12.0); Neutrophils # (auto) 5.5 10 ^3/uL (1.6-8.6); Neutrophils % (auto) 58.5 % (37.0-80.0); Nucleated Red Blood Cells % 0.1 %; Platelet Count (auto) 219 10^3/uL (140-450); Red Blood Cells 4.77 10^6/uL (4.5-5.90); Red Cell Distribution Width 15.4 % (11.8-14.3); White Blood Cell 9.4 10^3/uL (4.4-10.8)
[2024-06-23 06:58] LABS: Alanine Aminotransferase 100 U/L (7-40); Albumin 4.3 g/dL (3.2-4.8); Alkaline Phosphatase 138 U/L (46-116); Anion Gap 7 (5-15); Aspartate Aminotransferase 82 U/L (13-40); BUN/Creatinine Ratio 9.4 (10.0-20.0); Blood Urea Nitrogen 12 mg/dL (9-23); Carbon Dioxide 23 mmol/L (20-30); Chloride 101 mmol/L (98-107); Glucose 89 mg/dL (74-106); Potassium 3.9 mmol/L (3.5-5.1); Sodium 131 mmol/L (136-145)
[2024-06-23 06:59] LABS: Bilirubin, Total 1.9 mg/dL (0.2-1.0)
[2024-06-23 09:15] LABS: Free T3 4.48 pg/mL (2.3-4.2)
[2024-06-23 09:17] LABS: Free T4 (Free Thyroxine) 1.39 ng/dL (0.89-1.76)
[2024-06-23] MEDS ORDERED: APIX5TAB PO (11:04)
[2024-06-23] MEDS ORDERED: FURO1TAB33 PO (11:23)
[2024-06-23] MEDS ORDERED: METO25TA5 PO (11:23)
[2024-06-23] MEDS ORDERED: ATOR-507 PO (11:23)
[2024-06-23] MEDS ORDERED: TEST200I32 IM (11:23)
[2024-06-23] MEDS ORDERED: HYDR10T PO ×2 (11:23)
[2024-06-23] MEDS: ASPirin-EC 81 mg tab PO SCH (11:23)
[2024-06-23] MEDS ORDERED: SPIR25TA PO (11:23)
[2024-06-23] MEDS ORDERED: ALL300T PO (11:23)
[2024-06-23] MEDS: PANTOPRAZOLE 40 MG/10 ML VIAL INJ IV SCH (11:24)
[2024-06-23] MEDS: cefTRIAXone 1GM/50ML D5W 50 ML IV ONE (16:45)
[2024-06-23] MEDS: HYDROCORTISONE 10 MG TAB PO SCH (17:57)
[2024-06-23] MEDS: FUROSEMIDE 20 MG TAB PO SCH (17:58)
[2024-06-23] MEDS: APIXABAN 5 MG TAB PO SCH (21:26)
[2024-06-23] MEDS: ATORVASTATIN 20 MG TAB PO SCH (21:26)
[2024-06-23] MEDS: DESMOPRESSIN ACET 0.01% 5ML NASAL SPRY SCH (21:43)
[2024-06-23] MEDS ORDERED: METOPROLOL TARTRATE 25 MG TAB PO SCH (22:00)
[2024-06-24] VITALS (7 sets, daily range): BP systolic 90–110; BP diastolic 55–70; PULSE 68–101; RESP 16–20; TEMP 97.3–98.9; O2SAT 95–99
[2024-06-24 06:08] LABS: Basophils # (auto) 0 10 ^3/uL (0-0.2); Basophils % (auto) 0.6 % (0.0-2.0); Eosinophils # (auto) 0.2 10 ^3/uL (0-0.8); Eosinophils % (auto) 2.1 % (0.0-7.0); Hematocrit 40.3 % (41.0-53.0); Hemoglobin 14.3 g/dL (13.5-17.5); Lymphocytes # (auto) 2.2 10 ^3/uL (0.4-5.4); Lymphocytes % (auto) 29.1 % (10.0-50.0); Mean Corpuscular Hemoglobin 31.4 pg (28.0-32.0); Mean Corpuscular Hgb Conc. 35.5 g/dL (32.0-36.0); Mean Corpuscular Volume 88.4 fL (80.0-100.0); Monocytes # (auto) 0.8 10 ^3/uL (0-1.3); Monocytes % (auto) 10.7 % (0.0-12.0); Neutrophils # (auto) 4.3 10 ^3/uL (1.6-8.6); Neutrophils % (auto) 57.5 % (37.0-80.0); Nucleated Red Blood Cells % 0.2 %; Platelet Count (auto) 195 10^3/uL (140-450); Red Blood Cells 4.56 10^6/uL (4.5-5.90); Red Cell Distribution Width 14.9 % (11.8-14.3); White Blood Cell 7.4 10^3/uL (4.4-10.8)
[2024-06-24 06:36] LABS: Alanine Aminotransferase 85 U/L (7-40); Albumin 4.4 g/dL (3.2-4.8); Alkaline Phosphatase 130 U/L (46-116); Anion Gap 6 (5-15); Aspartate Aminotransferase 73 U/L (13-40); BUN/Creatinine Ratio 9.6 (10.0-20.0); Blood Urea Nitrogen 11 mg/dL (9-23); Calcium 9.8 mg/dL (8.7-10.4); Carbon Dioxide 26 mmol/L (20-30); Chloride 102 mmol/L (98-107); Glucose 86 mg/dL (74-106); Sodium 134 mmol/L (136-145)
[2024-06-24 06:37] LABS: Bilirubin, Total 1.4 mg/dL (0.2-1.0); Total Protein 8.1 g/dL (5.7-8.2)
[2024-06-24] MEDS ORDERED: cefTRIAXone 1GM/50ML D5W 50 ML IV SCH (09:00)
[2024-06-24] MEDS ORDERED: SPIRONOLACTONE 25 MG TAB PO SCH (10:00)
[2024-06-24] MEDS ORDERED: HYDROCORTISONE 10 MG TAB PO SCH (10:00)
[2024-06-24] MEDS: METOPROLOL SUCCINATE XL 50 MG TAB PO SCH (11:28)
[2024-06-24] MEDS: HYDROCORTISONE 10 MG TAB PO SCH (12:02)
[2024-06-24] MEDS: ALLOPURINOL 100 MG TAB PO SCH (12:02)
[2024-06-24] MEDS: ACETAMINOPHEN 325 MG TAB PO ONE (12:03)
[2024-06-24] MEDS: EMPAGLIFLOZIN 10 MG TAB PO SCH (12:03)
[2024-06-24] MEDS ORDERED: ACETAMINOPHEN 325 MG TAB PO PRN (14:00)
[2024-06-25 05:00] VITALS: BP 123/77; PULSE 84; RESP 18; TEMP 98; O2SAT 97
[2024-06-25 07:16] LABS: Basophils # (auto) 0 10 ^3/uL (0-0.2); Basophils % (auto) 0.5 % (0.0-2.0); Eosinophils # (auto) 0.1 10 ^3/uL (0-0.8); Eosinophils % (auto) 1.3 % (0.0-7.0); Hematocrit 43.3 % (41.0-53.0); Hemoglobin 15.1 g/dL (13.5-17.5); Lymphocytes # (auto) 2.6 10 ^3/uL (0.4-5.4); Lymphocytes % (auto) 29.2 % (10.0-50.0); Mean Corpuscular Hemoglobin 31.1 pg (28.0-32.0); Mean Corpuscular Hgb Conc. 34.9 g/dL (32.0-36.0); Mean Corpuscular Volume 89.1 fL (80.0-100.0); Monocytes # (auto) 0.7 10 ^3/uL (0-1.3); Monocytes % (auto) 8.4 % (0.0-12.0); Neutrophils # (auto) 5.4 10 ^3/uL (1.6-8.6); Neutrophils % (auto) 60.6 % (37.0-80.0); Platelet Count (auto) 203 10^3/uL (140-450); Red Blood Cells 4.86 10^6/uL (4.5-5.90); Red Cell Distribution Width 15.4 % (11.8-14.3); White Blood Cell 8.9 10^3/uL (4.4-10.8)
[2024-06-25 07:31] LABS: Alanine Aminotransferase 85 U/L (7-40); Alkaline Phosphatase 142 U/L (46-116); Anion Gap 8 (5-15); BUN/Creatinine Ratio 11.1 (10.0-20.0); Blood Urea Nitrogen 13 mg/dL (9-23); Calcium 10.4 mg/dL (8.7-10.4); Carbon Dioxide 26 mmol/L (20-30); Chloride 100 mmol/L (98-107); Glucose 78 mg/dL (74-106); Sodium 134 mmol/L (136-145)
[2024-06-25 07:32] LABS: Albumin 4.7 g/dL (3.2-4.8); Aspartate Aminotransferase 72 U/L (13-40); Bilirubin, Total 1.3 mg/dL (0.2-1.0); Total Protein 8.6 g/dL (5.7-8.2)
[2024-06-25 08:00] VITALS: PULSE 78; RESP 20; O2SAT 96
[2024-06-25 08:59] VITALS: BP 105/68; PULSE 78; RESP 20; TEMP 98.4; O2SAT 96
[2024-06-25 09:41] LABS: Hepatitis B Surface Antigen Negative (Negative)
[2024-06-25 09:53] LABS: Hepatitis A Ab IgM Negative; Hepatitis B Core IgM Negative
[2024-06-25 09:54] LABS: Hepatitis C Antibody Negative (Negative)
[2024-06-25] MEDS ORDERED: SACC1CAP3 PO (11:37)
[2024-06-25 12:06] VITALS: BP 123/76; PULSE 55; RESP 20; TEMP 98.7; O2SAT 97
[2024-06-25 13:06] LABS: Anti-Nuclear Antibody Direct Negative (Negative)
== END 2024-06-25 12:20 | disposition home or self-care (01) | DRG 720 ==
LOC: ER 14:02 → OVERFLOW 19:34 → CENTRAL 23:44
PROVIDERS: ADMIT Internal Medicine; ATTEND Internal Medicine
DX: A41.9 Sepsis, unspecified organism (principal); N17.0 Acute kidney failure with tubular necrosis; I50.32 Chronic diastolic (congestive) heart failure; E87.1 Hypo-osmolality and hyponatremia; A08.4 Viral intestinal infection, unspecified; E11.65 Type 2 diabetes mellitus with hyperglycemia; E03.9 Hypothyroidism, unspecified; E86.0 Dehydration; E83.52 Hypercalcemia; Z79.899 Other long term (current) drug therapy; Z88.8 Allergy status to other drugs, medicaments and biological substances; Z95.0 Presence of cardiac pacemaker; Z85.89 Personal history of malignant neoplasm of other organs and systems
CPT/HCPCS: 36415; 70450; 71045; 74176; 76705; 80053; 80074; 81001; 82270; 82728; 83880; 83986; 84439; 84443; 84481; 84484; 85025; 85048; 86038; 87045; 87426; 87427; 87493; 93005; 93306; 99291; G0378; J2470

== ENCOUNTER 2024-10-19 11:22 | Emergency (ER) | payer MEDICAID ==
[~2024-10-19] VITALS: Ht 177.8 cm; Wt 95.4 kg
[~2024-10-19 11:22] MED LIST changes: +APIX5TAB PO; +ATOR-507 PO; -CARV6.2551 PO; -DESNSL NAS; -FURO20TA4 PO; +SACC1CAP3 PO; +TEST200I32 IM; -[UNRECOGNIZED DRUG - CODE]; -[UNRECOGNIZED DRUG - CODE] EACHNOSTRI
[2024-10-19 13:59] LABS: Potassium 4.2 mmol/L (3.5-5.1)
[2024-10-19 14:00] LABS: Anion Gap 6 (5-15); Carbon Dioxide 29 mmol/L (20-31)
[2024-10-19 14:01] LABS: Calcium 10.5 mg/dL (8.7-10.4); Chloride 96 mmol/L (98-107); Sodium 131 mmol/L (136-145)
[2024-10-19 14:05] LABS: BUN/Creatinine Ratio 12.4 (10.0-20.0); Blood Urea Nitrogen 14 mg/dL (9-23); Glucose 90 mg/dL (74-106)
--- NOTE | 2024-10-19 15:03 | ED.PDOC ---
History of Present Illness HPI Comments 44-year-old male, with a history of brain tumor s/p surgical intervention, CHF, DM, gout, hypothyroidism, pacemaker, and obesity, presents with significant other for complaint of headache, blurry vision, and abnormal studies, today. Per significant other, patient was advised to come to the ED for further workup after receiving a head CT via outpatient care and was found with abnormal findings. Who came patient states on having CT, initially, done after already being seen and evaluated for symptoms by his primary care. He states he has been having headache and blurry since 08/15/2024. He denies any vision changes, dizziness, weakness, or other associated symptoms or modifying us at this time. Chief Complaint: Headache Time Seen by MD: 14:40 Primary Care Provider: JOSH Reviewed Notes: Nurses Notes, Medications, Allergies Allergies: Coded Allergies: NO KNOWN ALLERGIES (Unverified , 08/12/23) Home Meds Active Scripts Yeast (S. Boulardii)(S. Cerevi (Probiotic) 250 Mg Cap, 250 MG PO BID for 15 Days, #30 CAP Prov:BLANQUITA SNYDER RESIDENT 06/25/24 Reported Medications Aspirin (Aspirin Adult Low Dose) 81 Mg Tab, 1 TAB PO DAILY for 90 Days, #90 06/24/24 Metoprolol Succinate (Metoprolol Succinate Er) 25 Mg Tab, 1 TAB PO DAILY for 90 Days, #90 5 Refills 06/24/24 Testosterone Cypionate (Testosterone Cypionate) 200 Mg/Ml Inj, 200 MG IM, INJ 06/23/24 Colchicine (Colchicine) Pow, 0.6 MG PO Q12HR for 30 Days, MG 06/23/24 Furosemide (Lasix) 40 Mg Tab, 1 TAB PO DAILY for 45 Days, #90 06/23/24 Dapagliflozin Propanediol (Farxiga) 10 Mg Tab, 1 TAB PO DAILY for 90 Days 06/23/24 Atorvastatin Calcium (Lipitor) 40 Mg Tab, 1 TAB PO DAILY, #30 TAB 5 Refills 06/23/24 Apixaban Base (ELIQUIS) 5 Mg Tab, 5 MG PO BID, TAB 06/23/24 Hydrocortisone Base (Hydrocortisone) 5 Mg Tab, TAB PO UD for 30 Days, #125 Take 3 tablets (15 mg) by mouth every MORNING, and take 2 tablets (10 mg) by mouth every EVENING. 08/12/23 Levothyroxine Sodium (Levothyroxine Sodium) 200 Mcg Tab, 1 TAB PO DAILY 08/12/23 Spironolactone (Spironolactone) 25 Mg Tab, 1 TAB PO DAILY 08/12/23 Allopurinol (Allopurinol) 300 Mg Tab, 1 TAB PO DAILY for 90 Days, #90 08/12/23 Information Source: Patient Mode of Arrival: Ambulatory Severity: Moderate Timing: Hours Duration: Since onset Prehospital treatment: Other (See HPI) Past Medical History PAST MEDICAL HISTORY: Cancer (brain tumor), CHF, DM, Gout, Thyroid Past Medical History (Other): Obesity Surgical History: Pacemaker Family History Family History: Reviewed,noncontributory to illness, Unknown Social History Smoker: Non-Smoker Alcohol: Denies ETOH Use Drugs: Denies Drug Use Lives In: Home Physical Exam General Appearance: No Apparent Distress, Obese HEENT: Normal ENT Inspection, Pharynx Normal, TMs Normal Neck: Full Range of Motion, Non-Tender, Normal, Normal Inspection Respiratory: Chest Non-Tender, Lungs Clear, No Accessory Muscle Use, No Respiratory Distress, Normal Breath Sounds Cardiovascular: No Edema, No JVD, No Murmur, No Gallop, Normal Peripheral Pulses, Regular Rate/Rhythm Breast Exam: Deferred Gastrointestinal: No Organomegaly, Non Tender, No Pulsatile Mass, Normal Bowel Sounds, Soft Genitalia: Deferred Pelvic: Deferred Rectal: Deferred Extremities: No calf tenderness, Normal capillary refill, Normal inspection, Normal range of motion, Non-tender, No pedal edema Musculoskeletal : Apperance: Normal Neurologic: Alert, crackling press operator II-XII nml as Tested, No Motor Deficits, Normal Affect, Normal Mood, No Sensory Deficits Cerebellar Function: Normal Reflexes: Normal Skin: Dry, Normal Color, Warm Lymphatic: No Adenopathy Was a procedure done? Was a procedure done?: No Differential Dx Considerations may include: Abnormal imaging studies, migraines, tension headache, electrolyte imbalance, recurrent brain tumor history X-Ray, Labs, Meds, VS Vital Signs Date Time Temp Pulse Resp B/P (MAP) Pulse Ox O2 Delivery O2 Flow Rate FiO2 10/19/24 11:35 98.1 93 16 114/70 (85) 97 Lab Test 10/19/24 13:30 Range/Units Sodium Level 131 L 136-145 mmol/L Potassium Level 4.2 3.5-5.1 mmol/L Chloride Level 96 L 98-107 mmol/L Carbon Dioxide Level 29 20-31 mmol/L Anion Gap 6 5-15 Blood Urea Nitrogen 14 9-23 mg/dL Creatinine 1.13 0.700-1.30 mg/dL Glomerular Filtration Rate Calc 82 >90 mL/min BUN/Creatinine Ratio 12.4 10.0-20.0 Serum Glucose 90 74-106 mg/dL Calcium Level 10.5 H 8.7-10.4 mg/dL Time of 1ST Reevaluation: 15:00 Reevaluation 1ST: Unchanged (Remains neurovascularly intact. Because the patient's cerebral lesions could be chronic in nature, I did not think the patient needed acute transfer for tertiary care. Likewise, no steroids or other medication were given to reduce ICH. There is no indication the patient has ICH.) Patient Education/Counseling: Diagnosis, Treatment Family Education/Counseling: Diagnosis, Treatment Departure 1 Departure Time of Disposition: 15:28 Impression: Primary Impression: Brain mass Disposition: ADMITTED INPATIENT Admit to: [facility] Condition: Guarded Critical Care Note Critical Care Time?: Yes (45 min-critical care time only) Critical care comment: CRITICAL CARE TIME: *45 minutes Treatments/Evaluations: Close monitoring and treatment of unstable vital signs, cardiorespiratory, and neurologic status, while maintaining tight balance of fluid, respiratory, and cardiac interventions. This time includes discussing the case with the patient and the patients family. This time does not include all procedures stated elsewhere in this record. This time also includes reviewing old records, labs and radiological studies. This time includes examining and re- examining the patient. Additionally, this time also includes arranging care with admitting and consulting physicians. Stability Stability form required: No Heart Score Heart Score: Heart Score Response (Comments) Value History N/A 0 EKG N/A 0 Age N/A 0 Risk Factors N/A 0 Troponin N/A 0 Total 0 I personally scribed for SUSU HANLEY MD ([email or web address]) on 10/19/24 at 15:03. Electronically submitted by Ruslan Duenas ([email or web address]). I personally scribed for SUSU HANLEY MD ([email or web address]) on 10/19/24 at 15:48. Electronically submitted by Ruslan Duenas ([email or web address]). SUSU HANLEY MD Oct 19, 2024 15:03
--- NOTE | 2024-10-19 15:08 | DVH ---
Procedure: CT HEAD W WO CONTRAST HISTORY: Sent by PCP for abn ct head. hx brain tumor and now has ALCANTAR Comparison Study: CT HEAD WITHOUT CONTRAST on DOS: 06/22/24, CT HEAD WITHOUT CONTRAST on DOS: 08/12/23 Exam Date:10/19/2024 02:33 PM TECHNIQUE: CTA head without and with intravenous contrast. CTA neck with intravenous contrast. 3D is[place] Ropatec postprocessing was performed and images were used for interpretation and reporting. Radiation Dose : CT Dose: CTDI volume is 25 mGy. Dose-length product is 250 mGy*cm FINDINGS: CTA head: There is normal enhancement of the visualized distal internal carotid, anterior and middle cerebral a rteries. There is a normal anterior communicating artery complex. There are bilateral posterior commu nicating arteries. The vertebral, basilar, cerebellar and posterior cerebral arteries are within norm al limits. The early parenchymal enhancement is grossly unremarkable. The visualized intracranial robert ous structures are grossly unremarkable. Old right frontal craniotomy changes. Right subfrontal encephalomalacia underlying the craniotomy def ect. Relatively symmetric primarily white matter hypodensity involving approximately 4 cm segments an terior right and left temporal. Approximately 6 mm linear focus calcification near the posterior nara in of the hyperdensity right temporal lobe. Approximately 12 x 15 x 20 mm mass within the sella and suprasellar cistern that impresses upon the o ptic chiasm and impresses upon or encases encases the poorly visualized optic nerves. Small bony bony defect within the dorsum sella. Findings most suggestive of residual/recurrent tumor. MRI with IV co ntrast IMPRESSION: Approximately 12 x 15 x 20 mm mass within the sella and suprasellar cistern that impresses upon the o ptic chiasm and impresses upon or encases encases the poorly visualized optic nerves. Small bony bony defect within the dorsum sella. Findings most suggestive of residual/recurrent tumor. MRI with IV co ntrast CAROTID STENOSIS REFERENCE Distal internal carotid artery diameter as the denominator for stenosis measurement: MILD = <50% stenosis. MODERATE = 50-69% stenosis. SEVERE = 70-89% stenosis. CRITICAL = 90-99% stenosis. OCCLUDED = 100% stenosis. All CT scans at this medical facility are performed using dose modulation techniques as appropriate t o a performed exam including the following: Automated exposure control was utilized; adjustment of th e MA and/or KV according to patient size; and use of iterative reconstruction technique.
[2024-10-19] MEDS ORDERED: ACETAMINOPHEN 325 MG TAB PO PRN (16:45)
[2024-10-19] MEDS ORDERED: DEXTROSE (50%) 50ML SYRG IV PRN (16:45)
[2024-10-19] MEDS ORDERED: NITROGLYCERIN 0.4 MG SL TAB SL PRN (16:45)
[2024-10-19] MEDS ORDERED: ONDANSETRON HCL 4 MG/2 ML VIAL IV PRN (16:45)
[2024-10-19] MEDS ORDERED: MORPHINE SULFATE INJ 2 MG/ml SYRG IV PRN (16:45)
[2024-10-19] MEDS ORDERED: HYDROcodone-ACET 5/325MG TAB PO PRN (16:45)
[2024-10-19] MEDS ORDERED: DOCUSATE SOD 100 MG CAP PO PRN (16:45)
[2024-10-19] MEDS: ACCU-CHEK COMFORT CURVE STRIP VI SCH (17:00)
--- NOTE | 2024-10-19 17:06 | DVHHP2 ---
History of Present Illness Reason for Visit: Brain mass History of Present Illness Patient is a 44-year-old male with past medical history of brain tumor, CHF, DM, gout, and thyroid disease who presented to [facility] ED with complaint of headache. Patient reports symptoms progressively get worse with blurry vision, dizziness, persistent headache rating 8/10 numeric scale, getting worse that prompted this visit. Patient was seen and evaluated in the ED, laboratory data shows laboratory data shows sodium 131, potassium 4.2, BUN , creatinine 1.13, glucose 90, calcium 10.5, blood pressure 114/70, heart rate 93, temperature 98.1 F, O2 saturation 97% on room air. Head CT revealing approximally 12 x 15 x 20 mm mass within the sella and suprasellar. Findings most suggestive of residual/recurrent tumor, recommending MRI with IV contrast. Please see medication orders section in the computer. On my assessment, patient denied chest pain, no loss of consciousness, no shortness of breath, no nausea, no vomiting, no fever, no chills. Patient was transferred to another facility fo r higher level of care. Past Medical History Cancer (brain tumor), CHF, DM, Gout, Thyroid Past Surgical History Pacemaker, surgical intervention for brain tumor Family History Reviewed, noncontributory to the management of this case. Past Social History The patient lives at home, denies smoking, alcohol or illicit drugs abuse. Review of Systems Constitutional: No: Fever, Chills, Sweats, Weakness, Malaise, Other Eyes: Vision change (Blurry); No: Pain, Conjunctivae inflammation, Eyelid inflammation, Other, Redness ENT: No: Ear pain, Ear discharge, Nose pain, Nose discharge, Nose congestion, Mouth pain, Mouth swelling, Throat pain, Throat swelling, Other Respiratory: No: Cough, Dry, Shortness of breath, SOB with excertion, Wheezing, Hemoptysis, Pleuritic Pain, Sputum, Wheezing, Other Cardiovascular: No: Chest Pain, Palpitations, Orthopnea, Paroxysmal Noc. Dyspnea, Edema, Lt Headedness, Other Gastrointestinal: No: Nausea, Vomiting, Abdominal Pain, Diarrhea, Constipation, Melena, Hematochezia, Other Genitourinary: No Dysuria, No Frequency, No Incontinence, No Hematuria, No Retention, No Other Musculoskeletal: No: other, neck pain, shoulder pain, arm pain, back pain, hand pain, leg pain, foot pain Skin: No: Rash, Lesions, Jaundice, Bruising, Other Neurological: Other (Headache, dizziness.); No: Weakness, Numbness, Incoordination, Change in speech, Confusion, Seizures Allergies: Coded Allergies: NO KNOWN ALLERGIES (Unverified , 08/12/23) Exam Vital Signs Vital Signs Date Time Temp Pulse Resp B/P (MAP) Pulse Ox O2 Delivery O2 Flow Rate FiO2 10/19/24 11:35 98.1 93 16 114/70 (85) 97 General Appearance: Alert, Oriented X3, Cooperative, No acute distress HEENT: Atraumatic, PERRLA, EOMI, Mucous membr. moist/pink, Other (Reports headache.) Respiratory: Clear to auscultation, Normal air movement Cardiovascular: Regular rate, Normal S1, Normal S2, No murmurs Abdominal: Normal bowel sounds, Soft, No tenderness, No hepatospenomegaly, No masses Extremities: No clubbing, No cyanosis, No edema, Normal pulses, No tenderness/swelling Skin: No rashes, No breakdown, No significant lesion Neuro: Normal gait, Normal speech, Strength at 5/5 X4 ext, Normal tone, Sensation intact, Cranial nerves 3-12 NL, Reflexes 2+ Psych/Mental Status: Mental status NL, Mood NL Labs/Xrays Labs Test 10/19/24 13:30 Range/Units Sodium Level 131 L 136-145 mmol/L Potassium Level 4.2 3.5-5.1 mmol/L Chloride Level 96 L 98-107 mmol/L Carbon Dioxide Level 29 20-31 mmol/L Anion Gap 6 5-15 Blood Urea Nitrogen 14 9-23 mg/dL Creatinine 1.13 0.700-1.30 mg/dL Glomerular Filtration Rate Calc 82 >90 mL/min BUN/Creatinine Ratio 12.4 10.0-20.0 Serum Glucose 90 74-106 mg/dL Calcium Level 10.5 H 8.7-10.4 mg/dL PATIENT: BERNARDO MOLINA ACCT: [id number] UNIT: [id number] : 1980 LOC: ER ROOM / BED: / AGE / SEX: 44 / M ADM STATUS: REG ER SERVICE 1210 ORDERING PHYSICIAN: SUSU HANLEY MD PROCEDURE(s): HDCT - HEAD W WO CONTRAST REASON: Sent by PCP for abn ct head. hx brain tumor and now has ALCANTAR ORDER NUMBER(s): [id number], ACCESSION NUMBER(s): [id number] Procedure: CT HEAD W WO CONTRAST HISTORY: Sent by PCP for abn ct head. hx brain tumor and now has ALCANTAR Comparison Study: CT HEAD WITHOUT CONTRAST on DOS: 06/22/24, CT HEAD WITHOUT CONTRAST on DOS: 08/12/23 Exam Date:10/19/2024 02:33 PM TECHNIQUE: CTA head without and with intravenous contrast. CTA neck with intravenous contrast. 3D image postprocessing was performed and images were used for interpretation and reporting. Radiation Dose : CT Dose: CTDI volume is 25 mGy. Dose-length product is 250 mGy*cm FINDINGS: CTA head: There is normal enhancement of the visualized distal internal carotid, anterior and middle cerebral arteries. There is a normal anterior communicating artery complex. There are bilateral posterior communicating arteries. The vertebral, basilar, cerebellar and posterior cerebral arteries are within normal limits. The early parenchymal enhancement is grossly unremarkable. The visualized intracranial venous structures are grossly unremarkable. Old right frontal craniotomy changes. Right subfrontal encephalomalacia underlying the craniotomy defect. Relatively symmetric primarily white matter hypodensity involving approximately 4 cm segments anterior right and left temporal. Approximately 6 mm linear focus calcification near the posterior margin of the hyperdensity right temporal lobe. Approximately 12 x 15 x 20 mm mass within the sella and suprasellar cistern that impresses upon the optic chiasm and impresses upon or encases encases the poorly visualized optic nerves. Small bony bony defect within the dorsum sella. Findings most suggestive of residual/recurrent tumor. MRI with IV contrast IMPRESSION: Approximately 12 x 15 x 20 mm mass within the sella and suprasellar cistern that impresses upon the optic chiasm and impresses upon or encases encases the poorly visualized optic nerves. Small bony bony defect within the dorsum sella. Findings most suggestive of residual/recurrent tumor. MRI with IV contrast CAROTID STENOSIS REFERENCE Distal internal carotid artery diameter as the denominator for stenosis measurement: MILD = <50% stenosis. MODERATE = 50-69% stenosis. SEVERE = 70-89% stenosis. CRITICAL = 90-99% stenosis. OCCLUDED = 100% stenosis. Assessment/Plan Assessment/Plan Brain mass Hyponatremia Intractable headache Plan 1. Transferred to higher level of care per Neurology 2. Breathing treatment as needed 3. Pain control management 4. Management of fluids and electrolytes 5. Consultation for Neurology 6. Diagnostic tests head CT 7. DVT prophylaxis on aspirin 8. Repeat labs CBC, CMP in a.m. 9. Continue with current medical management 10. Treatment plan discussed with patient and RN. Patient verbalized understanding. Plan discussed with: Patient, Son (Son at bedside), Other (RN) My Orders Orders - NIRANJAN GUMZAN DNP Procedure Category Date Status Time Aspirin Tablet PHA 10/20/24 Verified 10:00 Atorvastatin (Lipitor) PHA 10/19/24 Verified 22:00 B-Type Natriuretic LAB 10/19/24 Verified Peptide 16:45 Thyroid Stimulating LAB 10/19/24 Verified Hormone 16:45 Levothyroxine Tablet PHA 10/20/24 Verified (Synthroid Tablet) 06:00 * Neurology Consult CONS 10/19/24 Verified 16:45 Glucose Blood PHA 10/19/24 Verified (Accu-Chek Comfort 17:00 Mild Sliding Scale PHA 10/19/24 Verified 17:00 Dextrose 50% Syringe PHA 10/19/24 Verified 16:45 Admit ADMIT 10/19/24 Verified 16:45 Allergies JANIE 10/19/24 Verified 16:45 Code Status CODE 10/19/24 Verified 16:45 2 Gm Sodium Diet DIET 10/19/24 Verified Dinner Oxygen Per Hour RT 10/19/24 Verified 16:45 Hydrocodone-Acet PHA 10/19/24 Verified 5/325mg Tab (Louisa 16:45 Ondansetron Hcl PHA 10/19/24 Verified (Zofran) 16:45 Docusate Sodium PHA 10/19/24 Verified Capsule (Colace 16:45 Fall Risk Precautions JANIE 10/19/[address] 16:45 Complete Blood Count LAB 10/20/24 Verified 04:00 Problem List: (1) Brain mass (2) Hyponatremia (3) Intractable headache Date of Service: Oct 19, 2024 Billing Provider: NIRANJAN GUZMAN DNP Common Visit Codes: [id number] INP/OBS CARE (HIGH) NIRANJAN GUZMAN DNP Oct 19, 2024 17:06
--- NOTE | 2024-10-19 19:40 | DVHINCON2 ---
Date of service: Oct 19, 2024 Referring Physician Santa Reason for Consultation Brain mass History of Present Illness Mr. Alvarez is a 44 years old right-handed gentleman with a history of diabetes insipidus, hypothyroidism, gout, pituitary tumor, congenital heart disease, obesity, he came to the [facility] on 10/19/2024 with a chief company of brain tumor. At that time, he is alert, oriented x3, but it is not a good historian, the following information is obtained from his I saw him on 08/19/2023 for altered mental status He has a history of pituitary tumor that will be further described. Because of progressive headache, blurry vision since 08/26/24, the patient was had a abnormal CT head scan in the morning on 10/19/2024 and was urged to come to the hospital for further evaluation. The patient was found to have pituitary tumor and he went through surgery and radiation in the age of [age]. Hepatitis panel, 08/12/2023: Negative BMP, 10/19/2024: Na: 131 TBI/AST/ALT/AP, 06/25/24: 1.3/72/85/142 TSH, 10/19/2024: < 0.01 EEG 08/20/2023: Normal sleep EEG CT head, 08/12/2023: No acute intracranial abnormality CT head, 10/19/2024: Approximately 12 x 15 x 20 mm mass within the sella and suprasellar cistern that impresses upon the optic chiasm and impresses upon or encases encases the poorly visualized optic nerves. Small bony bony defect within the dorsum sella. Findings most suggestive of residual/recurrent tumor. MRI with IV contrast Past Medical History Diabetes insipidus, hypothyroidism, gout, pituitary tumor, congenital heart disease, gout, obesity Past Surgical History Pacemaker insertion in the age of 10, pituitary tumor removal Family History He was not aware of his family history Social History He is a nontobacco smoker, no history of alcohol recreational substance abuse Allergies: Coded Allergies: NO KNOWN ALLERGIES (Unverified , 08/12/23) Home Meds Active Scripts Yeast (S. Boulardii)(S. Cerevi (Probiotic) 250 Mg Cap, 250 MG PO BID for 15 Days, #30 CAP Prov:BLANQUITA SNYDER RESIDENT 06/25/24 Reported Medications Aspirin (Aspirin Adult Low Dose) 81 Mg Tab, 1 TAB PO DAILY for 90 Days, #90 06/24/24 Metoprolol Succinate (Metoprolol Succinate Er) 25 Mg Tab, 1 TAB PO DAILY for 90 Days, #90 5 Refills 06/24/24 Testosterone Cypionate (Testosterone Cypionate) 200 Mg/Ml Inj, 200 MG IM, INJ 06/23/24 Colchicine (Colchicine) Pow, 0.6 MG PO Q12HR for 30 Days, MG 06/23/24 Furosemide (Lasix) 40 Mg Tab, 1 TAB PO DAILY for 45 Days, #90 06/23/24 Dapagliflozin Propanediol (Farxiga) 10 Mg Tab, 1 TAB PO DAILY for 90 Days 06/23/24 Atorvastatin Calcium (Lipitor) 40 Mg Tab, 1 TAB PO DAILY, #30 TAB 5 Refills 06/23/24 Apixaban Base (ELIQUIS) 5 Mg Tab, 5 MG PO BID, TAB 06/23/24 Hydrocortisone Base (Hydrocortisone) 5 Mg Tab, TAB PO UD for 30 Days, #125 Take 3 tablets (15 mg) by mouth every MORNING, and take 2 tablets (10 mg) by mouth every EVENING. 08/12/23 Levothyroxine Sodium (Levothyroxine Sodium) 200 Mcg Tab, 1 TAB PO DAILY 08/12/23 Spironolactone (Spironolactone) 25 Mg Tab, 1 TAB PO DAILY 08/12/23 Allopurinol (Allopurinol) 300 Mg Tab, 1 TAB PO DAILY for 90 Days, #90 08/12/23 Current Medications Current Medications Medications (Trade) Dose Ordered Sig/Saurav Route PRN Reason Start Time Stop Time Status Last Admin Aspirin 81 mg DAILY PO 10/20/24 10:00 Atorvastatin Calcium (Lipitor) 40 mg HS PO 10/19/24 22:00 Levothyroxine Sodium (Synthroid Tablet) 150 mcg QAM@0600 PO 10/20/24 06:00 Diagnostic Test (Pha) (Accu-Chek Comfort Curve T) 1 strip ACHS 10/19/24 17:00 Insulin Human Regular (InsuLIN R) ACHS SC 10/19/24 17:00 Dextrose 50 ml UD PRN IV Blood Sugar LESS THAN 60 10/19/24 16:45 Acetaminophen/ Hydrocodone Bitart ([place] 5/325MG Tab) 1 tab Q4HP PRN PO MODERATE PAIN (4-6 PAIN SCALE) 10/19/24 16:45 Ondansetron HCl (Zofran) 4 mg Q4HP PRN IV NAUSEA / VOMITING 10/19/24 16:45 Docusate Sodium (Colace Capsule) 100 mg BIDPRN PRN PO FOR CONSTIPATION 10/19/24 16:45 Acetaminophen (Tylenol Tablet) 650 mg Q6HP PRN PO PAIN SCALE 1-3 OR TEMP>100.4 10/19/24 16:45 Nitroglycerin (Ntrostat Sublingual) 0.4 mg Q5MINP PRN SL FOR CHEST PAIN 10/19/24 16:45 Morphine Sulfate 2 mg Q30M PRN IV FOR CHEST PAIN 10/19/24 16:45 Review of Systems As above, the other systems are negative Vital Signs Vital Signs Date Time Temp Pulse Resp B/P (MAP) Pulse Ox O2 Delivery O2 Flow Rate FiO2 10/19/24 11:35 98.1 93 16 114/70 (85) 97 Physical Exam GENERAL EXAM: General: the patient is well developed and nourished. No acute distress. HEENT: Status post craniectomy, neck is supple, no carotid bruits. No mass RESPIRATORY: Normal respiratory effort with symmetrical lung expansion. Lungs clear to auscultation. CARDIOVASCULAR: Regular rate and rhythm with no murmurs. S1, S2. ABDOMEN: Soft, nontender, normal bowel sound NEUROLOGICAL: MENTAL STATUS: Awake and alert. Oriented to person, place, time SPEECH, LANGUAGE, HIGHER CORTICAL FUNCTION: no aphasia or dysathria. CRANIAL NERVES: #2: Intact visual campos to confrontation #3,4,6: Pupils are equal, round and reactive. EOMs full and conjugate. No nystagmus. #5: Facial sensation intact in all three divisions bilaterally. Mandibular strength intact. #7: Facial muscles symmetrical and strength intact. #8: Hearing grossly normal to voice. #9,10: Uvula and soft palate rise in the midline. Swallow and voice are normal. #11: Trapezius and sternomastoid strength intact bilaterally. #12: Tongue midline. No fasciculations or atrophy. SENSATION: Sensation to touch and pinprick is normal. MOTOR: Normal tone in the upper and lower extremity. Normal muscle bulk. No fasciculations. No abnormal movements or posturing. Muscle strength of the major groups in the upper extremities is 5/5. Muscle strength of the major groups in the lower extremities is 5/5. REFLEXES: Deep tendon reflexes normal and symmetrical. No pathological reflexe s. CEREBELLAR/COORDINATION: Finger to nose is normal bilaterally. GAIT/STATION: Within normal limits Labs/Diagnostic Data Labs Test 10/19/24 13:30 Range/Units Sodium Level 131 L 136-145 mmol/L Potassium Level 4.2 3.5-5.1 mmol/L Chloride Level 96 L 98-107 mmol/L Carbon Dioxide Level 29 20-31 mmol/L Anion Gap 6 5-15 Blood Urea Nitrogen 14 9-23 mg/dL Creatinine 1.13 0.700-1.30 mg/dL Glomerular Filtration Rate Calc 82 >90 mL/min BUN/Creatinine Ratio 12.4 10.0-20.0 Serum Glucose 90 74-106 mg/dL Calcium Level 10.5 H 8.7-10.4 mg/dL Thyroid Stimulating Hormone (TSH) < 0.01 L 0.55-4.78 uIU/mL Assessment Pituitary tumor, recurrent Progress headache, blurry vision, likely secondary to growing pituitary tumor Hypopituitarism Plan/Recommendation Monitoring Supportive treatment CT with IV dye (his pacemaker is not MRI compatible) Hydrocortisone Desmopressin Levothyroxine I recommend transferred to higher level care Re: Recurrent pituitary tumor More recommendation per clinical course This medical document was created using an electronic medical record system with [employer] dictation system. Although this document has been carefully reviewed, there may still be some phonetic and typographical errors. These areas are purely typographical due to imperfections of the software programs, and do not reflect any compromise in the patient's medical care Plan discussed with: Patient, Spouse, Other LAZ REYES MD Oct 19, 2024 19:40
[2024-10-19] MEDS: InsuLIN REG 1unit/0.01ml Soln (100units/ml) SC SCH (20:51)
[2024-10-19 20:55] VITALS: PULSE 90; RESP 18; O2SAT 98
[2024-10-19] MEDS: ATORVASTATIN 20 MG TAB PO SCH (23:23)
[2024-10-19 23:47] VITALS: BP 113/71; PULSE 90; RESP 18; TEMP 97.7; O2SAT 97
--- NOTE | 2024-10-20 03:56 | DVH ---
Date: 10/19/2024 11:15 PM Examination: XY KUB ABDOMEN SINGLE VIEW History: abd pain Comparison: None TECHNIQUE: Frontal views of the abdomen was obtained. FINDINGS: Bowel gas pattern is unremarkable. Large stool burden. There is a battery pack overlying T11 and T12 vertebral body The lung bases are unremarkable. No acute osseous abnormality identified. IMPRESSION: Nonobstructive bowel gas pattern. Large stool burden.
[2024-10-20] MEDS ORDERED: LEVOTHYROXINE SODIUM 50 MCG TAB PO SCH (06:00)
[2024-10-20] MEDS ORDERED: ASPirin 81 mg TAB PO SCH (10:00)
== END 2024-10-19 16:51 | disposition short-term general hospital (02) ==
LOC: ER 11:22 → UNDOADMIN 16:45 → TELE 16:45 → UNDODISIN 23:38
DX: R22.0 Localized swelling, mass and lump, head (principal); E11.9 Type 2 diabetes mellitus without complications; I50.9 Heart failure, unspecified; E66.9 Obesity, unspecified; M10.9 Gout, unspecified; E07.9 Disorder of thyroid, unspecified; Z95.0 Presence of cardiac pacemaker
CPT/HCPCS: 36415; 70470; 74018; 80048; 82962; 83880; 84443; 99291; G0378

== ENCOUNTER 2025-01-27 15:12 | Emergency (ER) | payer MEDICAID ==
[~2025-01-27] VITALS: Ht 177.8 cm; Wt 96.1 kg
--- NOTE | 2025-01-27 15:57 | ED.PDOC ---
History of Present Illness HPI Comments 44M presents to the ER w/ prior Hx of CHF, CABG, Valve Sx and a Pacemaker which all may be associated to the c/c of /D. Pt report on having /D for 3 weeks which is associated w/ gen weakness x yesterday and is currently taking blood thinners. PMHx of DM, Gout, Thyroid and brain Tumor. Denies chills, fever, N/V, SOB, CP or no other associated symptoms, modifiers, recent injuries or sick contacts at this time. Chief Complaint: Abdominal Pain Time Seen by MD: 15:25 Primary Care Provider: JOSH Reviewed Notes: Nurses Notes, Medications, Allergies Allergies: Coded Allergies: NO KNOWN ALLERGIES (Unverified , 08/12/23) Home Meds Active Scripts Yeast (S. Boulardii)(S. Cerevi (Probiotic) 250 Mg Cap, 250 MG PO BID for 15 Days, #30 CAP Prov:BLANQUITA SNYDER RESIDENT 06/25/24 Reported Medications Aspirin (Aspirin Adult Low Dose) 81 Mg Tab, 1 TAB PO DAILY for 90 Days, #90 06/24/24 Metoprolol Succinate (Metoprolol Succinate Er) 25 Mg Tab, 1 TAB PO DAILY for 90 Days, #90 5 Refills 06/24/24 Testosterone Cypionate (Testosterone Cypionate) 200 Mg/Ml Inj, 200 MG IM, INJ 06/23/24 Colchicine (Colchicine) Pow, 0.6 MG PO Q12HR for 30 Days, MG 06/23/24 Furosemide (Lasix) 40 Mg Tab, 1 TAB PO DAILY for 45 Days, #90 06/23/24 Dapagliflozin Propanediol (Farxiga) 10 Mg Tab, 1 TAB PO DAILY for 90 Days 06/23/24 Atorvastatin Calcium (Lipitor) 40 Mg Tab, 1 TAB PO DAILY, #30 TAB 5 Refills 06/23/24 Apixaban Base (ELIQUIS) 5 Mg Tab, 5 MG PO BID, TAB 06/23/24 Hydrocortisone Base (Hydrocortisone) 5 Mg Tab, TAB PO UD for 30 Days, #125 Take 3 tablets (15 mg) by mouth every MORNING, and take 2 tablets (10 mg) by mouth every EVENING. 08/12/23 Levothyroxine Sodium (Levothyroxine Sodium) 200 Mcg Tab, 1 TAB PO DAILY 08/12/23 Spironolactone (Spironolactone) 25 Mg Tab, 1 TAB PO DAILY 08/12/23 Allopurinol (Allopurinol) 300 Mg Tab, 1 TAB PO DAILY for 90 Days, #90 08/12/23 Information Source: Patient Mode of Arrival: Ambulatory Severity: Moderate Timing: Weeks Duration: Since onset Prehospital treatment: None Past Medical History PAST MEDICAL HISTORY: Cancer (Brain Tumor), CHF, DM, Gout, Thyroid Surgical History: CABG, Pacemaker Surgical History (Other): Valve Sx Family History Family History: Reviewed,noncontributory to illness, Unknown Social History Smoker: Non-Smoker Alcohol: Denies ETOH Use Drugs: Denies Drug Use Lives In: Home Constitutional: reports: weakness; denies: chills, diaphoresis, fatigue, fever, malaise, sweats, others EENTM: denies: blurred vision, double vision, ear bleeding, ear discharge, ear drainage, ear pain, ear ringing, eye pain, eye redness, hearing loss, mouth pain, mouth swelling, nasal discharge, nose bleeding, nose congestion, nose pain, photophobia, tearing, throat pain, throat swelling, voice changes, others Respiratory: denies: cough, hemoptysis, orthopnea, SOB at rest, shortness of breath, SOB with excertion, stridor, wheezing, others Cardiovascular: denies: chest pain, dizzy spells, diaphoresis, Dyspnea on exertion, edema, irregular heart beat, left arm pain, lightheadedness, palpitations, PND, syncope, others Gastrointestinal: reports: diarrhea; denies: abdomen distended, abdominal pain, blood streaked bowels, constipated, dysphagia, difficulty swallowing, hematemesis, melena, nausea, poor appetite, poor fluid intake, rectal bleeding, rectal pain, vomiting, others Genitourinary: denies: burning, dysuria, flank pain, frequency, hematuria, incontinence, penile discharge, penile sore, pain, testicle pain, testicle swelling, urgency, others Neurological: denies: dizziness, fainting, headache, left sided numbness, left sided weakness, numbness, paresthesia, pre-existing deficit, right sided numbness, right sided weakness, seizure, speech problems, tingling, tremors, w eakness, others Musculoskeletal: denies: back pain, gout, joint pain, joint swelling, muscle pain, muscle stiffness, neck pain, others Integumetry: denies: bruises, change in color, change in hair/nails, dryness, laceration, lesions, lumps, rash, wounds, others Allergic/Immunocompromised: denies: Difficulty Healing, Frequent Infections, Hives, Itching, others Hematologic/Lymphatic: denies: anemia, blood clots, easy bleeding, easy bruising, swollen glands, others Endocrine: denies: excessive hunger, excessive sweating, excessive thirst, excessive urination, flushing, intolerance to cold, intolerance to heat, unexplained weight gain, unexplained weight loss, others Psychiatric: denies: anxiety, bipolar disorder, depression, hopeless, panic disorder, schizophrenia, sleepless, suicidal, others All Other Systems: Reviewed and Negative Physical Exam General Appearance: Moderate Distress, Normal HEENT: Normal ENT Inspection, Pharynx Normal, TMs Normal Neck: Full Range of Motion, Non-Tender, Normal, Normal Inspection Respiratory: Chest Non-Tender, Lungs Clear, No Accessory Muscle Use, No Respiratory Distress, Normal Breath Sounds Cardiovascular: No Edema, No JVD, No Murmur, No Gallop, Normal Peripheral Pulses, Regular Rate/Rhythm Breast Exam: Deferred Gastrointestinal: No Organomegaly, Non Tender, No Pulsatile Mass, Normal Bowel Sounds, Soft Genitalia: Deferred Pelvic: Deferred Rectal: Deferred Extremities: No calf tenderness, Normal capillary refill, Normal inspection, Normal range of motion, Non-tender, No pedal edema Musculoskeletal : Apperance: Normal Neurologic: Alert, family service aide II-XII nml as Tested, No Motor Deficits, Normal Affect, Normal Mood, No Sensory Deficits Cerebellar Function: Normal Reflexes: Normal Skin: Dry, Normal Color, Warm Peripheral Pulses: 3+ Radial (R), 3+ Radial (L) Lymphatic: No Adenopathy Was a procedure done? Was a procedure done?: No Differential Dx Considerations may include: Gastroenteritis Electrolyte imbalance X-Ray, Labs, Meds, VS Vital Signs Date Time Temp Pulse Resp B/P (MAP) Pulse Ox O2 Delivery O2 Flow Rate FiO2 01/27/25 16:59 98.8 97 18 106/58 (74) 95 98.8 01/27/25 15:29 98.2 105 18 103/58 (73) 96 98.2 Lab Test 01/27/25 16:06 Range/Units White Blood Count 5.4 4.4-10.8 10^3/uL Red Blood Count 4.47 L 4.5-5.90 10^6/uL Hemoglobin 13.5 13.5-17.5 g/dL Hematocrit 39.0 L 41.0-53.0 % Mean Corpuscular Volume 87.4 80.0-100.0 fL Mean Corpuscular Hemoglobin 30.2 28.0-32.0 pg Mean Corpuscular Hemoglobin Concent 34.6 32.0-36.0 g/dL Red Cell Distribution Width 14.3 11.8-14.3 % Platelet Count 187 140-450 10^3/uL Mean Platelet Volume 8.2 6.9-10.8 fL Neutrophils (%) (Auto) 63.1 37.0-80.0 % Lymphocytes (%) (Auto) 22.0 10.0-50.0 % Monocytes (%) (Auto) 13.3 H 0.0-12.0 % Eosinophils (%) (Auto) 0.7 0.0-7.0 % Basophils (%) (Auto) 0.9 0.0-2.0 % Neutrophils # (Auto) 3.4 1.6-8.6 10 ^3/uL Lymphocytes # (Auto) 1.2 0.4-5.4 10 ^3/uL Monocytes # (Auto) 0.7 0-1.3 10 ^3/uL Eosinophils # (Auto) 0 0-0.8 10 ^3/uL Basophils # (Auto) 0 0-0.2 10 ^3/uL Nucleated Red Blood Cells 0.1 % Sodium Level 129 L 136-145 mmol/L Potassium Level 4.6 3.5-5.1 mmol/L Chloride Level 98 98-107 mmol/L Carbon Dioxide Level 24 20-31 mmol/L Anion Gap 7 5-15 Blood Urea Nitrogen 24 H 9-23 mg/dL Creatinine 1.93 H 0.700-1.30 mg/dL Glomerular Filtration Rate Calc 43 >90 mL/min BUN/Creatinine Ratio 12.4 10.0-20.0 Serum Glucose 98 74-106 mg/dL Calcium Level 10.4 8.7-10.4 mg/dL Patient alert. Complaining of diarrhea. Blood pressure on the low side. Tachycardia. Abdomen is soft nontender. Strong history of coronary artery disease. Valvular surgery. Has a zipper. Establish intravenous access. Was given fluids. Reviewed his history. Explained to the patient. Continue cardiac monitoring. EKG reviewed does not show any acute changes. CT scan of the abdomen reviewed does not show any acute process. BUN creatinine is slightly elevated. He was given fluids. Sodium level slightly low. He does have low sodium level. Fluids were correct the sodium. Was given prescription of Lomotil Flagyl antibiotic. Was told to follow up with his primary care physician. Was told to come back if there is any problem. Time of 1ST Reevaluation: 15:55 Reevaluation 1ST: Improved Patient Education/Counseling: Diagnosis, Treatment, Prognosis Family Education/Counseling: No Family Present Departure 1 Departure Time of Disposition: 16:04 Impression: Primary Impression: Gastroenteritis Additional Impressions: Dehydration Hyponatremia Disposition: 01 HOME / SELF CARE / HOMELESS Condition: Good e-Prescriptions Diphenoxylate W/ Atropine (Lomotil) 2.5 Mg Tab 2.5 MG PO BS for 5 Days, #5 TAB Prov: ERNESTO SAUCEDO MD 01/27/25 Metronidazole (Metronidazole) 500 Mg Tab 500 MG PO TID for 5 Days, #15 TAB Prov: ERNESTO SAUCEDO MD 01/27/25 Discharged With: Self Critical Care Note Critical Care Time?: No Stability Stability form required: No Heart Score Heart Score: Heart Score Response (Comments) Value History Slightly Suspicious 0 EKG Normal 0 Age <45 0 Risk Factors 1 or 2 risk factors 1 Troponin Normal limit 0 Total 1 I personally scribed for ERNESTO SAUCEDO MD ([email or web address]) on 01/27/25 at 15:57. Electronically submitted by Maxx Ellison ([email or web address]). ERNESTO SAUCEDO MD Jan 27, 2025 15:57
[2025-01-27 16:18] LABS: Basophils # (auto) 0 10 ^3/uL (0-0.2); Basophils % (auto) 0.9 % (0.0-2.0); Eosinophils # (auto) 0 10 ^3/uL (0-0.8); Eosinophils % (auto) 0.7 % (0.0-7.0); Hemoglobin 13.5 g/dL (13.5-17.5); Lymphocytes # (auto) 1.2 10 ^3/uL (0.4-5.4); Mean Corpuscular Hemoglobin 30.2 pg (28.0-32.0); Mean Corpuscular Hgb Conc. 34.6 g/dL (32.0-36.0); Mean Corpuscular Volume 87.4 fL (80.0-100.0); Monocytes # (auto) 0.7 10 ^3/uL (0-1.3); Monocytes % (auto) 13.3 % (0.0-12.0); Neutrophils # (auto) 3.4 10 ^3/uL (1.6-8.6); Neutrophils % (auto) 63.1 % (37.0-80.0); Nucleated Red Blood Cells % 0.1 %; Platelet Count (auto) 187 10^3/uL (140-450); Red Blood Cells 4.47 10^6/uL (4.5-5.90); Red Cell Distribution Width 14.3 % (11.8-14.3); White Blood Cell 5.4 10^3/uL (4.4-10.8)
[2025-01-27 16:26] LABS: Potassium 4.6 mmol/L (3.5-5.1)
[2025-01-27 16:27] LABS: Anion Gap 7 (5-15); Calcium 10.4 mg/dL (8.7-10.4); Carbon Dioxide 24 mmol/L (20-31)
[2025-01-27 16:32] LABS: BUN/Creatinine Ratio 12.4 (10.0-20.0); Blood Urea Nitrogen 24 mg/dL (9-23); Chloride 98 mmol/L (98-107); Glucose 98 mg/dL (74-106); Sodium 129 mmol/L (136-145)
--- NOTE | 2025-01-27 16:51 | DVH ---
CT ABDOMEN AND PELVIS WITHOUT CONTRAST CLINICAL HISTORY: enteritis TECHNIQUE: Multiple contiguous axial images of the abdomen and pelvis without intravenous contrast. T he images were reformatted degenerate coronal and sagittal reconstructions. All CT scans at this medical facility are performed using dose modulation techniques as appropriate t o a performed exam including the following:Automated exposure control was utilized; adjustment of the MA and/or KV according to patient size; and use of iterative reconstruction technique. Radiation Dose Information: CT Dose: CTDI volume is 17.89 mGy. Dose-length product is 1165.29 mGy*cm Comparison: CT CT AB PEL WO CON-NO ORAL OR IV on DOS: 06/22/24, CT CT AB PEL WO CON-NO ORAL OR IV on D OS: 08/13/23 FINDINGS: Evaluation of the abdomen and pelvis is limited without intravenous contrast. The liver, gallbladder, pancreas, kidneys, adrenal glands, and spleen appear within normal limits. There is no gross evidence of abdominal lymphadenopathy. There is no free fluid or free air. The stomach grossly appears unremarkable. The small and large bowel loops demonstrate normal caliber and distribution. The appendix is not seen in the right lower quadrant abdomen. There are no seconda ry signs of acute appendicitis. The abdominal aorta and IVC appear within normal limits. The bladder appears unremarkable for the d egree of distention. Pelvic organ appears within normal limits. There is no gross evidence of a pelv ic mass. There is no free fluid collection. Lung bases are clear. There is no acute osseous abnormality. IMPRESSION: 1. There is no acute process in the abdomen and pelvis. HS:Y
[2025-01-27 16:59] VITALS: BP 106/58; TEMP 98.8
[2025-01-27] MEDS ORDERED: MET500T PO (17:08)
[2025-01-27] MEDS ORDERED: DIPH2.5T73 PO (17:08)
[2025-01-27] MEDS: metroNIDAZOLE 500MG/100ML 100 ML IV ONE (17:17)
[2025-01-27] MEDS: SODIUM CHLORIDE 0.9% 1,000 ML IV ONE (17:17)
[2025-01-27 17:21] VITALS: PULSE 100; RESP 16; O2SAT 96
--- NOTE | 2025-01-27 18:49 | ECG ---
[facility] Test Date: 2025-01-27 Test Time: 15:24:13 Pat Name: BERNARDO MOLINA Department: ER Room: Gender: M [id number] Technical Lead: GABRIEL : 1980 Requested By: ERNESTO SAUCEDO Order Number: [id number] Reading MD: Pj Gil Measurements Intervals [place] Rate: 101 P: 78 WA: 191 QRS: 130 QRSD: 158 T: -48 QT: 394 QTc: 511 Interpretive Statements Atrial-sensed ventricular-paced rhythm No further analysis attempted due to paced rhythm Baseline wander in lead(s) I,III,aVL,V1,V3,V4,V5,V6 Electronically Signed On 01-28-2025 14:11:18 PDT by Pj Gil Please click the below link to view image of tracing.
== END 2025-01-27 17:50 | disposition home or self-care (01) ==
LOC: ER 15:12
DX: K52.9 Noninfective gastroenteritis and colitis, unspecified (principal); E86.0 Dehydration; E87.1 Hypo-osmolality and hyponatremia; E11.9 Type 2 diabetes mellitus without complications; I50.9 Heart failure, unspecified; M10.9 Gout, unspecified; E03.9 Hypothyroidism, unspecified; Z79.82 Long term (current) use of aspirin; Z79.84 Long term (current) use of oral hypoglycemic drugs; Z79.899 Other long term (current) drug therapy; Z85.841 Personal history of malignant neoplasm of brain; Z95.0 Presence of cardiac pacemaker; Z95.1 Presence of aortocoronary bypass graft
CPT/HCPCS: 36415; 74176; 80048; 85025; 93005; 96365; 99285; J3490; J7030